=== PATIENT | male | born 1935 | race Caucasian/White ===

== ENCOUNTER 2016-12-20 11:20 | Inpatient (IN) | payer OTHER ==
--- NOTE | ~2016-12-20 | A ---
[facility] Nutrition Therapy DATE: 12/27/16 Patient: DHEERAJ DEL RIO Physician: IONA Address: [address] [facility] Room/Bed: [address] [place] [address], Zip: [place] [address] Admit Date: 12/20/16 Date of : 36 Height: 5 4 Weight: 137 62.4 NUTRITIONAL ASSESSMENT: REASON: ENGINEERING AND DEVELOPMENT DIRECTOR request re: chewing, swallowing difficulty Dx: 81 y/o male admitted for PNA, weakness PMH: ESRD, DM, TIA, HTN, HLD, anemia Anthropometrics: ht: 5'4" wt: 137# (62 kg) BMI: 23 Labs: Na+ 130, Glu 180, accuchecks 159-198, creat 5.8, Ca++ 8.0, Alb 2.1, GFR 8.5 Meds: lovenox, lopressor, protonix, megace, levemir, novolog I/O & Bowel function: 640/2. BM 7/10 Skin Integrity: shunt- LUAl band aid- biopsy site; scabs/skin tears- L elbow BUE Diet: Mechanical soft + CC + thin liquids Assessment: Chart reviewed, events noted. Pt seen per request of ENGINEERING AND DEVELOPMENT DIRECTOR due to pt having chewing and swallowing difficulties. RD technology internship visited pt at bedside. Pt's was in room, feeding patient lunch of beef and mashed potatoes. Pt's reports that the pt's chewing and swallowing function has greatly improved. She reports that the pt had a pancake and soup for breakfast, tolerating 100% of each. RD technology internship encouraged pt and pt's (user experience architect) to continue adequate intake for pt. RD technology internship offered to order supplements to ensure adequate intake, but the pt's says he does not like ensure. RD technology internship offered magic cup, and pt and pt's refused, stating that his intake is adequate. RD will remain available. Dx: Inadequate oral intake r/t chewing/swallowing difficulties AEB PO intake. Intervention: 1. Mechanical soft + CC diet + thin liquids Monitoring, Evaluation and Goals: 1. Oral intake; tolerate/consume >50% of all meals 2. GI function; promote regular GI function 2. Skin; promote healing Recommendations: 1. Per ENGINEERING AND DEVELOPMENT DIRECTOR evaluation, advance diet to consistent carbohydrate. [facility] Nutrition Therapy DATE: 12/27/16 Patient: DHEERAJ DEL RIO Physician: IONA Address: [address] [place] [address] Room/Bed: [address] [place] [address], Zip: [place] [address] Admit Date: 12/20/16 Date of : 36 Height: 5 4 Weight: 137 62.4 2. Encourage adequate PO intake. 3. Monitor for signs of swallowing/chewing difficulty. RD will f/u per protocol as pt is at mild/moderate nutritional risk. Respectfully, JUAN M DE LOS SANTOS, Modeling And Simulation Analyst Aleksandar Calix MS, RD, LD [facility] Services [facility] cc: client file
--- NOTE | ~2016-12-20 | US5 ---
[facility] A Service of [facility] RADIOLOGY TEXT RESULTS PATIENT: DHEERAJ DEL RIO LOCATION: [facility] 566-01 : 36 UNIT #: [id number] AGE: [address]: Elgin Lujan MD SEX: M ORDER DR: [id number] [facility] [address] [place], [place] [address] [id number] I MR#: [id number] #: [id number] NAME: DHEERAJ DEL RIO : 1935 SEX: M STUDY DATE/TIME: 12/24/2016 14:04 UNIT: [facility] ROOM: [facility] STUDY DESCRIPTION: US Abdominal Complete Attending Physician: Elgin Lujan M.D. Ordering Physician: Castro Patterson M.D. Primary Care Physician: Dheeraj Mckeon M.D. MEDICAL IMAGING REPORT This report is preliminary unless electronic signature is present EXAM Ultrasound abdomen complete. HISTORY Liver and spleen, abdominal pain and vomiting x1 week. Anorexia, weight loss, end-stage renal failure with dialysis. History of renal cell carcinoma with partial right nephrectomy. TECHNIQUE Real-time ultrasonography of the abdomen performed. COMPARISON Comparison to CT abdomen and pelvis dated 12/20/2016. FINDINGS The drug enforcement agent indicates study technically difficult due to patient body habitus. Mining Support Worker notes high placement of abdominal organs in the thoracic cavity. The pancreas is obscured by bowel gas artifact. No acute pancreatic abnormalities seen on CT examination 12/20/2016. The proximal aorta measures up to 2.09 cm in diameter. It is patent. Mid aorta measures up to 1.84 cm in diameter. The distal aorta measures up to 1.34 cm in diameter. The inferior vena cava is patent. It measures about 1.51 cm in diameter. The hepatic veins appear grossly patent. The portal vein is patent with normal direction of flow. The liver measures about 13.71 cm in greatest craniocaudal extent. Normal in contour. Slightly heterogeneous echotexture with no focal suspicious abnormality. The gallbladder is not pathologically dilated. There is echogenic nonshadowing material within the gallbladder. It does not have the appearance of gallbladder polyps. I favor echogenic sludge. No shadowing gallstone is clearly seen. I cannot exclude that the echogenic material may reflect very small gallstones. There is no pericholecystic fluid. The gallbladder wall measures approximately 2 mm in thickness. There is no compelling ultrasound evidence of acute cholecystitis. There is no STS. [facility] A Service of [facility] RADIOLOGY TEXT RESULTS PATIENT: DHEERAJ DEL RIO LOCATION: [facility] 566-01 : 36 UNIT #: [id number] AGE: [address]: Elgin Lujan MD SEX: M ORDER DR: biliary ductal dilatation. The common duct measures 3.1 mm in diameter. There is a small right pleural effusion. The right kidney is poorly visualized. It measures approximately 7 cm in greatest length. There is no hydronephrosis or nephrolithiasis. No cystic or solid mass lesion is clearly seen. The left kidney measures about 9.9 cm in length. There is a lower pole cyst measuring 2.38 cm x 2.63 cm x 2.49 cm. There is an upper pole cyst measuring 2.55 cm x 3.13 cm x 2.40 cm. There is no hydronephrosis or nephrolithiasis. There is no perinephric fluid collection. The spleen measures 9.23 cm in length. The splenic artery and vein are patent. There is a small left pleural effusion. IMPRESSION 1. Somewhat technically limited study. The liver is slightly heterogeneous in echotexture with no focal parenchymal abnormality seen. 2. Gallbladder is normal to low in volume. There is nonshadowing echogenic material within the gallbladder most likely representing either very small calculi or gallbladder sludge. No sonographic indication of acute cholecystitis. 3. No biliary ductal dilatation. 4. Kidneys appear somewhat atrophic. Similar appearance on prior CT examination 12/20/2016. There are left renal cysts. No suspicious renal findings. 5. Aorta normal caliber. 6. Hepatic vasculature appears grossly patent. 7. Note made of small bilateral pleural effusions. 8. See complete details in body of report. Dictated by... Priyank Steel M.D. THIS IS AN ELECTRONICALLY VERIFIED REPORT Priyank Steel M.D. at 12/25/2016 10:48 PM VINAY/annie TD: 12/24/2016 23:54 JOB #: [id number] MEDICAL IMAGING REPORT Page 1 of 1 COPY
--- NOTE | ~2016-12-20 | CT71 ---
[facility] A Service of [facility] RADIOLOGY TEXT RESULTS PATIENT: DHEERAJ DEL RIO LOCATION: [facility] : 36 UNIT #: [id number] AGE: [address]: Elgin Lujan MD SEX: M ORDER DR: [id number] [facility] [address] [place], [place] [address] [id number] I MR#: [id number] #: [id number] NAME: DHEERAJ DEL RIO. : 1935 SEX: M STUDY DATE/TIME: 12/20/2016 12:11 UNIT: [facility] ROOM: [facility] STUDY DESCRIPTION: CT Head Wo Contrast Attending Physician: Elgin Lujan M.D. Ordering Physician: Warren Kang M.D. Primary Care Physician: Dheeraj Mckeon M.D. MEDICAL IMAGING REPORT This report is preliminary unless electronic signature is present EXAM Noncontrast head CT. HISTORY Weakness, unable to eat x1 month. Blurred vision x1-1/[address], 01/07/2015. TECHNIQUE Axial noncontrast imaging of the brain demonstrates generalized atrophy. This CT exam was performed with one or more of the following radiation dose reduction techniques: automatic exposure control, adjustment of mA and/or kV according to patient size, and iterative reconstruction. FINDINGS Decreased attenuation within the left caudate and left basal ganglia compatible with lacunar infarct. No large vessel infarct. No mass, mass effect or midline shift. No hemorrhage. Bilateral maxillary and ethmoid sinus disease with air fluid level right maxillary sinus could reflect acute sinusitis. IMPRESSION 1. No acute intracranial abnormality identified. Generalized atrophy. 2. Bilateral ethmoid and maxillary sinus disease with right maxillary sinus air-fluid level which could reflect acute sinusitis. Dictated by.Uli. Laxmi Lopez M.D. THIS IS AN ELECTRONICALLY VERIFIED REPORT [facility] A Service of [facility] RADIOLOGY TEXT RESULTS PATIENT: DHEERAJ DEL RIO LOCATION: [facility] : 36 UNIT #: [id number] AGE: [address]: Elgin Lujan MD SEX: M ORDER DR: Laxmi Lopez M.D. at 12/21/2016 12:31 PM JORGE/annie TD: 12/21/2016 00:22 JOB #: [id number] MEDICAL IMAGING REPORT Page 1 of 1 COPY
--- NOTE | ~2016-12-20 | HP ---
Unit #: [id number] #: [id number] Patient: DHEERAJ DEL RIO [id number] [address] [place], [place] [address] [id number] I MR#: [id number] NAME: DHEERAJ DEL RIO ROOM: 566 Age: 81 Sex: M Admission Date: 12/20/2016 : 1935 Attending Physician: Elgin Lujan M.D. Primary Care Physician: Dheeraj Mckeon M.D. HISTORY AND PHYSICAL HISTORY OF PRESENT ILLNESS 81-year-old white male. History of end stage renal disease on hemodialysis, hypertension, TIA, type 2 diabetes mellitus, anemia, left hip arthroplasty, renal cell CA, status post partial right nephrectomy. Presents to the emergency room with progressive weakness and felt to be depressed by nephrology a few weeks ago and started on Lexapro. He has been very sleepy since then and has had trouble swallowing. He is a very poor historian. It is difficult to tell whether he is having true dysphagia of just anorexia, as he states that even soft foods he has trouble approaching even the smell. They have been trying to give him soups, which he has refused. He has had an unknown amount of weight loss. He is unable to ambulate to the dialysis center and had to be taken in with a wheelchair yesterday and therefore, presented self to the emergency room there. He was appropriately diagnosed with pneumonia. I do not see no evidence of same. He has a normal white count. Chest x-ray showed bilateral pleural effusions and consolidation but not obvious infiltrates. He has had a cough but it has been dry and nonproductive. He has had no fever or chills at home and has no complaints of shortness of air. In any case, he is admitted for further evaluation. It was noted on this last admission he had some transient thrombocytopenia. Yesterday when he was admitted, his platelet count was 56,000. It is pending this morning. He has already been seen by nephrology. Had a CT scan of his chest, abdomen, and pelvis, which are currently pending. He is admitted for further evaluation. ALLERGIES No known drug allergies. MEDICATIONS PRIOR TO ADMISSION Humalog dose unknown before meals. Appears to be a sliding scale. Lantus 20 units subcu q.h.s.; Pravachol 40 mg p.o. daily; Plavix 75 mg p.o. daily; Lexapro 10 mg p.o. daily; niacin 500 mg p.o. daily; vitamin D3 1,000 units daily; multivitamins daily; stool softener 200 mg q.h.s.; metoprolol succinate 25 mg b.i.d.; PAST SURGICAL HISTORY Right partial nephrectomy, left arm AV shunt, left hip hemiarthroplasty. PAST MEDICAL HISTORY End stage renal disease on hemodialysis, partial right nephrectomy for renal cell CA, type 2 diabetes mellitus, hypertension, hyperlipidemia, TIA. SOCIAL HISTORY , nonsmoker, nondrinker, retired, no street drug use. Unit #: [id number] #: [id number] Patient: DHEERAJ DEL RIO FAMILY HISTORY Noncontributory. PHYSICAL EXAMINATION GENERAL: He is awake, alert and oriented x3. is at the bedside. VITAL SIGNS: Afebrile, pulse 82, respirations 18, blood pressure was initially 95/48, currently it is 139/72. Room air O2 sats 100%. HEENT: Unremarkable except for some mild blepharitis. NECK: Supple without JVD, bruits, adenopathy or thyromegaly. CHEST: Decreased breath sounds bibasilar but otherwise clear to auscultation. HEART: Has a regular rate and rhythm without any murmurs, rubs, or gallops. ABDOMEN: Soft, nondistended, nontender. There was some fullness in the right lower quadrant without an obvious palpable mass and there was no hepatosplenomegaly. EXTREMITIES: Showed no clubbing, cyanosis or edema. and RECTAL: Deferred. NEUROLOGIC: Grossly intact. DIAGNOSTIC STUDIES LAB VALUES: CMP is normal except for random blood sugar of 155, creatinine 2.6, GFR of 22, alk phos of 190, albumin 2.6, coags normal. White count 5.6, platelets 56,000, hemoglobin 10.8. Cardiac enzymes normal x2 sets. IMAGING STUDIES: CT scan of the head no active disease. Evidence of chronic and acute sinusitis. Chest x-ray - bilateral pleural effusions with consolidation. CARDIOLOGY STUDIES: EKG shows normal sinus rhythm with a nonspecific T abnormality. IMPRESSION 1. Weakness. 2. Anorexia. 3. Weight loss. 4. Dysphagia. 5. Sinusitis. 6. Thrombocytopenia. 7. Anemia. 8. End stage renal disease on hemodialysis. 9. History of transient ischemic attack. 10. Type 2 diabetes mellitus. 11. History of renal cell cancer. 12. Bilateral pleural effusions. 13. Hyperlipidemia. PLAN 1. Check procalcitonin. 2. GI has been consulted for endoscopy, swallow eval has been ordered. 3. CT scan of the chest, abdomen and pelvis has been performed but not reported. 4. Will add Glucerna. 5. Discontinue his Pravachol and niacin because of the weakness. 6. Change his Lexapro to h.s. because of the sedation. Recheck his Unit #: [id number] #: [id number] Patient: HDEERAJ DEL RIO platelet counts. Further evaluation pending results of the above. Dictated by Yeni Yi/verna TD: 12/21/2016 09:30 JOB #: [id number] HISTORY AND PHYSICAL Page 1 of 1 X Elgin Lujan MD X HISTORY AND PHYSICAL
--- NOTE | ~2016-12-20 | CO ---
Unit #: [id number] #: [id number] Patient: DHEERAJ LAWRENCE [id number] [address] [address] [id number] I MR#: [id number] NAME: DHEERAJ LAWRENCE ROOM: 566 Age: 81 Sex: M Admission Date: 12/20/2016 : 1935 Attending Physician: Elgin Lujan M.D. Primary Care Physician: Dheeraj Mckeon M.D. Requesting Physician: Daljit Bianchi Jr., M.D. Consultation Date: 12/21/2016 CONSULTATION REPORT REASON FOR CONSULTATION Nausea, vomiting, weight loss, and dysphagia. HISTORY OF PRESENT ILLNESS Mr. Lawrence is a very pleasant, 80-year-old, white gentleman who has longstanding type 2 diabetes with end stage renal disease on hemodialysis. For the past several days, patient has been vomiting most of solids; however, he is able to tolerate broths and liquids according to his . According to the , he is a picky and stubborn eater, but has not eaten any solid foods for the past 5 or 6 days. He says he is quite hungry and is looking forward to having breakfast, but he is unable to eat anything because it tends to come back up. Patient is unable to relate any history of preceding retrosternal heartburn or postprandial dyspepsia. PAST MEDICAL HISTORY His past medical history is significant for history of type 2 diabetes with end stage renal disease on hemodialysis. In addition, he has also had a history of hypertension, renal cell carcinoma, status post nephrectomy, and hyperlipidemia. PAST SURGICAL HISTORY Surgeries include a partial right nephrectomy, left-sided AV fistula placed for hemodialysis as well as left femoral fracture. MEDICATIONS His home medications were reviewed and his current medications include the followin. Zithromax. 2. Lexapro. 3. Niacin. 4. Colace. 5. Levemir. 6. NovoLog. 7. Lovenox. 8. Plavix. 9. Vitamin B. 10. IV Protonix. 11. Lopressor. 12. Lexapro. 13. Lipitor. 14. Patient was given a dose of Zosyn on admission. It is not clear why he is on Plavix. ALLERGIES Unit #: [id number] #: [id number] Patient: DHEERAJ LAWRENCE No known drug allergies. REVIEW OF SYSTEMS Detailed review of organ systems does reveal some recent weight loss, history of nausea, vomiting, and history of regurgitation of solids particularly. Patient able to tolerate liquids. There is no history of cough, expectoration, or hemoptysis. No history of dysuria, hematuria, or pyuria. No history of focal seizures or extremity weakness. The rest of the review of organ systems is unremarkable. PHYSICAL EXAMINATION GENERAL APPEARANCE: He is alert, oriented, and appears comfortable. VITAL SIGNS: His vital signs are stable with a temperature of 97.5, pulse 82 per minute and regular, respiratory rate 18, and blood pressure 139/72. He weighs 137 pounds. Baseline weight has been about 146 pounds to about 9-10 pounds higher in the past. HEENT: He has mild pallor. There is no icterus or lymphadenopathy. EXTREMITIES: Grade I pitting, peripheral edema. CARDIOVASCULAR: Normal heart sounds. No murmurs on auscultation. LUNGS: Normal breath sounds with good air entry. ABDOMEN: Soft and nontender. Liver and spleen are not palpable. Bowel sounds normal. DIAGNOSTIC STUDIES LABORATORY: Evaluation is significant for normochromic, normocytic anemia with a hemoglobin of 10.8, white count is 5.6, and platelet count is 56. INR is 1.3. Serum creatinine shows a BUN and creatinine of 5 and 2.6 and blood glucose is 158. Albumin is 2.6. CLINICAL IMPRESSION Patient with nausea, vomiting, and new onset dysphagia. He will need an upper endoscopy and possible dilation; however, in the presence of underlying Plavix and thrombocytopenia, this might be a challenge and we may have to wait until patient is off Plavix for 3-4 days as well as given some platelets. Will do a diagnostic endoscopy and, depending on the latter, proceed further. Thank you for asking me to see this gentleman and I appreciate the consult. Dictated by.Uli. Yeni Kirkpatrick TD: 12/21/2016 10:41 JOB #: [id number] Unit #: [id number] #: [id number] Patient: DHEERAJ LAWRENCE CONSULTATION REPORT Page 1 of 1 X Branden Vogel MD CONSULTATION REPORT
--- NOTE | ~2016-12-20 | DS ---
Unit #: [id number] #: [id number] Patient: DHEERAJ DEL RIO [id number] [address] [address] [id number] I MR#: [id number] NAME: DHEERAJ DEL RIO ROOM: 566 Age: 81 Sex: M Admission Date: 12/20/2016 : 1935 Discharge Date: 12/29/2016 Attending Physician: Elgin Lujan M.D. Primary Care Physician: Dheeraj Mckeon M.D. DISCHARGE SUMMARY PRINCIPAL DISCHARGE DIAGNOSES 1. Weight loss. 2. Weakness. 3. Distal esophageal stricture. 4. Thrombocytopenia. 5. Anemia. 6. Chronic kidney disease, i.e. end-stage renal disease on hemodialysis Monday, , Monday. 7. Hypertension. 8. Type 2 diabetes mellitus. 9. Left ventricular dysfunction with an ejection fraction of 40% to 45%. 10. History of renal cell cancer, status post partial right nephrectomy. 11. Hyperlipidemia. 12. History of transient ischemic attack. 13. Left hip hemiarthroplasty. 14. Left arm arteriovenous shunt. PROCEDURES 1. EGD with biopsy, December 21, 2016. 2. Bone marrow aspiration and biopsy on December 26, 2016. 3. Hemodialysis on December 21, 2016. 4. Hemodialysis on December 23, 2016. 5. Hemodialysis on December 24, 2016. 6. Hemodialysis on December 27, 2016. 7. Hemodialysis on December 29, 2016. CONSULTANTS 1. Dr. Bianchi from nephrology. 2. Dr. Vogel from GI. 3. Dr. Patterson from hematology. 4. Dr. Camacho from cardiology. 5. Dr. Bai from pulmonary services. REASON FOR HOSPITALIZATION The patient is an 81-year-old white male with a history of end-stage renal disease on hemodialysis, hypertension, TIA, type 2 diabetes mellitus, anemia, left hip arthroplasty, renal cell cancer status post right partial nephrectomy presented to the emergency room with progressive weakness, anorexia, weight loss, dysphagia, poor historian. In the emergency room, he was felt to have a pneumonia although I did not see any evidence of same. He had a normal white count. Chest x-ray showed bilateral pleural effusions and consolidation but no obvious infiltrates. The patient had no significant fever, chills, or cough. He was placed on IV antibiotics in the emergency room and admitted. It was noted his platelet count was Unit #: [id number] #: [id number] Patient: DHEERAJ DEL RIO 56,000 on admission without any history of same. He was seen in consultation by Dr. Bianchi to set up his hemodialysis. Dr. Vogel from GI services was consulted because of his weight loss and dysphagia. Oncology was consulted because of the weight loss and history of renal cell CA. He underwent his regular dialysis on the . CT scan of the head showed sinusitis and no active disease. He underwent an EGD with biopsy on the showing distal erosive esophagitis, early stricture formation that was not dilated as the patient was on Plavix. He had some antral gastritis and duodenitis that was biopsied. He was placed on b.i.d. doses of proton pump inhibitors. 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 He was placed on Megace while here to improve his appetite. He underwent dialysis again on the . Hematology was consulted as his platelets dropped to 44,000 on the . His antibiotics were eventually discontinued as there was no evidence of pneumonia. He had a ferritin that was checked at over 1500. Urease from the EGD was negative. TSH was normal at 3.88. Urinalysis showed 3+ protein, 500 of glucose but was otherwise unremarkable. Reticulocyte count was 2%. B12 was 1388. Folic acid was normal at 6.6. He had EKG changes noted on the monitor. EKG was performed to document it and was also abnormal with ST segment depression. Cardiac enzymes were ordered and within normal limits. Cardiology was consulted. Abdominal ultrasound was ordered by the electric motor repairer. It was technically limited. The liver was slightly heterogeneous with no focal abnormalities. There were no other significant findings on this test. PT and PTT were checked and within normal ranges. Haptoglobin was normal at 130. HIT antibody was checked and was negative. Serum protein electrophoresis showed no abnormal bands. Bone marrow aspiration and biopsy were performed on the . Initial findings show hypercellular appearing bone marrow for his age with maturing trilineage, hematopoiesis but apparent erythroid hyperplasia. Case was submitted for further consultation including flow cytometry and cytogenetic testing which are still pending at the time of dictation. His platelet count has come up to 64,000. His CMP this morning is unremarkable except for a sodium of 129, blood sugar 294, creatinine 4.8, GFR 10.6. Alkaline phosphatase 170, albumin 2.4. He was originally to be transferred to rehab, but he has gotten stronger. His appetite is better. He is ambulatory and being discharged home in the care of his for outpatient followup. He is to have home health with [facility] for physical therapy. He is to follow up with Dr. Means next month in their office. He is to follow up with Dr. Stinson on February 13, at 11:15 a.m. He is given a prescription for a hospital bed. CURRENT MEDICATIONS 1. Multivitamins one daily. 2. Plavix 75 mg daily. 3. Protonix 40 mg b.i.d. 4. Vitamin D3 at 1000 units daily. 5. Lexapro 10 mg p.o. nightly. 6. Pravachol 40 mg p.o. daily. 7. Lopressor 50 mg p.o. b.i.d. 8. Colace 200 mg p.o. nightly. 9. Zestril 5 mg p.o. daily. 10. Humalog a.c. and at bedtime based on sliding scale insulin. 11. Lantus SoloStar 20 units subcutaneous nightly. Unit #: [id number] #: [id number] Patient: DHEERAJ DEL RIO Dictated by... Yeni Yi/veena TD: 12/30/2016 16:40 JOB #: [id number] DISCHARGE SUMMARY Page 1 of 1 X Elgin Ljuan MD X DISCHARGE SUMMARY
--- NOTE | ~2016-12-20 | CT55 ---
[facility] A Service of [facility] RADIOLOGY TEXT RESULTS PATIENT: DHEERAJ DEL RIO LOCATION: [facility] 566-01 : 36 UNIT #: [id number] AGE: [address]: Elgin Lujan MD SEX: M ORDER DR: [id number] [facility] [address] [facility]. [place], [place] [address] [id number] I MR#: [id number] Acc #: [id number] NAME: DHEERAJ DEL RIO : 1935 SEX: M STUDY DATE/TIME: 12/20/2016 19:56 UNIT: [facility] ROOM: [facility] STUDY DESCRIPTION: CT Chest W Con Attending Physician: Elgin Lujan M.D. Ordering Physician: Daljit Bianchi Jr., M.D. Primary Care Physician: Dheeraj Mckeon M.D. MEDICAL IMAGING REPORT This report is preliminary unless electronic signature is present EXAM CT chest with IV contrast. HISTORY Shortness of air and weakness today. TECHNIQUE This CT exam was performed with one or more of the following radiation dose reduction techniques: automatic exposure control, adjustment of mA and/or kV according to patient size, and iterative reconstruction. FINDINGS CT chest with IV contrast demonstrates small bilateral pleural effusions. Mild atelectasis in the posterior lower lobes. No adenopathy. Small calcified mediastinal and right hilar nodes are incidentally noted. No infiltrates in the remainder of the lungs. Normal caliber thoracic aorta. IMPRESSION 1. No acute findings and no active disease. 2. Small bilateral pleural effusions and mild atelectasis in the posterior lower lobes. 3. No adenopathy. Dictated by... Leobardo Boateng M.D. THIS IS AN ELECTRONICALLY VERIFIED REPORT Leobardo Boateng M.D. at 12/22/2016 12:07 AM NISHA/daljit TD: 12/21/2016 09:06 [facility] A Service of [facility] RADIOLOGY TEXT RESULTS PATIENT: DHEERAJ DEL RIO LOCATION: [facility] 566-01 : 36 UNIT #: [id number] AGE: [address]: Elgin Lujan MD SEX: M ORDER DR: JOB #: [id number] MEDICAL IMAGING REPORT Page 1 of 1 COPY
--- NOTE | ~2016-12-20 | CO ---
Unit #: [id number] #: [id number] Patient: DHEERAJ DEL RIO [id number] [address] [place], [place] [address] [id number] I MR#: [id number] NAME: DHEERAJ DEL RIO ROOM: 566 Age: 81 Sex: M Admission Date: 12/20/2016 : 1935 Attending Physician: Elgin Lujan M.D. Primary Care Physician: Dheeraj Mckeon M.D. Consultation Date: 12/21/2016 CONSULTATION REPORT CHIEF COMPLAINT Weakness. REASON FOR CONSULTATION Rule out pneumonia. HISTORY OF PRESENT ILLNESS This is an 81-year-old male with a past medical history significant for endstage renal disease on hemodialysis, hypertension and type 2 diabetes. He presented to the emergency room with his due to profound weakness and anorexia. The stated that the patient has been with very poor oral intake for the last few weeks. He was seen by his primary care physician and was placed on some anti-depression medication. The was hoping this would take care of it. However, his conditioned continued to decline over time, again, with very poor oral intake. The stated that the patient would not eat anything solid and when I questioned the patient he denied any odynophagia. However, there is concern for dysphagia. The patient also has lost a lot of weight, but he could not estimate how much. The denied any fever or chills, but she noted that the patient has been coughing a lot lately. PAST MEDICAL HISTORY 1. Endstage renal disease. 2. Type 2 diabetes. 3. Hypertension. 4. Hyperlipidemia. PAST SURGICAL HISTORY 1. Partial right nephrectomy. 2. Left AV shunt. 3. Left hip hemiarthroplasty. SOCIAL HISTORY The patient is and a nonsmoker, nondrinker. He is retired. No street drug abuse. FAMILY HISTORY Noncontributory. Unit #: [id number] #: [id number] Patient: DHEERAJ DEL RIO CURRENT MEDICATIONS Home medications are reviewed and noted by me. REVIEW OF SYSTEMS Twelve point review of systems was obtained and was negative except for that mentioned in the history of present illness. PHYSICAL EXAMINATION GENERAL: The patient is in no acute distress. HEENT: Atraumatic, normocephalic. Extraocular muscles intact. NECK: Supple. No jugular venous distension. No lymphadenopathy. CHEST: Decreased breath sounds bilaterally. HEART: S1 and S2. No murmur or gallop or rub. ABDOMEN: Soft and nontender. Bowel sounds positive. No hepatosplenomegaly. EXTREMITIES: No edema or cyanosis. SKIN: No rashes. NEUROLOGIC: Awake, alert and oriented times three. No focal motor/sensory deficits. DIAGNOSTIC STUDIES IMAGING: Including CT of the chest reviewed and noted by me. LABORATORY: Creatinine 2.6, CO2 28, white blood cell count 5.6, hemoglobin 10.4. ASSESSMENT 1. Cough. 2. Weight loss. 3. Profound weakness. 4. Endstage renal disease on hemodialysis. 5. Hypertension. 6. Hyperlipidemia. 7. Type 2 diabetes. PLAN 1. The patient's CT of the chest was noted and evaluated. There is no clear site of pneumonia. However, given his age and concern of dysphagia, aspiration needs to be ruled out. 2. Speech evaluation at this point. 3. Avoid solid food. 4. Continue azithromycin for bronchitis, but again we need to evaluate for aspiration. 5. GI evaluation. 6. Will follow up blood culture and procalcitonin. I would like to thank Dr. Lujan for allowing me to be part of this patient's care. Dictated by... Jose Bai M.D. EA/adrian TD: 12/21/2016 11:51 JOB #: [id number] Unit #: [id number] #: [id number] Patient: DHEERAJ DEL RIO CONSULTATION REPORT Page 1 of 1 X JOSE BELCHER MD CONSULTATION REPORT
--- NOTE | ~2016-12-20 | EKG ---
PATIENT: DHEERAJ DEL RIO UNIT #: [id number] Ventricular Rate: 74 BPM Atrial Rate: 74 BPM P-R Interval: 140 ms QRS Duration: 88 ms Q-T Interval: 420 ms QTC Calculation(Bezet): 466 ms P [place]: 68 degrees Calculated R [place]: 37 degrees Calculated T [place]: -165 degrees Diagnosis Line: Normal sinus rhythm Diagnosis Line: Nonspecific T wave abnormality Diagnosis Line: Abnormal ECG Diagnosis Line: When compared with ECG of 02-NOV-2015 10:02, Diagnosis Line: Premature supraventricular complexes are no longer Diagnosis Line: Present Diagnosis Line: Nonspecific T wave abnormality now evident in Diagnosis Line: Inferior leads Diagnosis Line: Nonspecific T wave abnormality now evident in Diagnosis Line: Anterolateral leads Diagnosis Line: Confirmed by ALICE LEI MD ([id number]) on Diagnosis Line: 12/21/2016 8:21:52 AM INTERPRETING MD: QUIQUE LAWRENCE
--- NOTE | ~2016-12-20 | CT2 ---
[facility] A Service of [facility] RADIOLOGY TEXT RESULTS PATIENT: DHEERAJ DEL RIO LOCATION: [facility] : 36 UNIT #: [id number] AGE: [address]: Elgin Lujan MD SEX: M ORDER DR: [id number] [facility] [address] [facility]. [place], [place] [address] [id number] I MR#: [id number] Acc #: [id number] NAME: DHEERAJ DEL RIO. : 1935 SEX: M STUDY DATE/TIME: 12/20/2016 19:56 UNIT: [facility] ROOM: [facility] STUDY DESCRIPTION: CT Abd and Pelv W Cont Attending Physician: Elgin Lujan M.D. Ordering Physician: Daljit Bianchi Jr., M.D. Primary Care Physician: Dheeraj Mckeon M.D. MEDICAL IMAGING REPORT This report is preliminary unless electronic signature is present EXAM CT abdomen and pelvis with oral and IV contrast. HISTORY Nausea and weakness today. TECHNIQUE CT abdomen and pelvis was performed with oral and IV contrast. This CT exam was performed with one or more of the following radiation dose reduction techniques: automatic exposure control, adjustment of mA and/or kV according to patient size, and iterative reconstruction. FINDINGS CT ABDOMEN: The liver, gallbladder, spleen, pancreas, and left adrenal gland are unremarkable. 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 Marked atrophy of both kidneys. Postop changes in the upper pole right kidney. Left renal cysts. Normal caliber abdominal aorta. No bowel dilatation. CT PELVIS: Normal appendix. No free fluid. Left hip prosthesis. IMPRESSION 1. No acute findings in the abdomen or pelvis. 2. No bowel obstruction or urinary obstruction. 3. Normal appendix. 4. Postop changes in the right kidney. 5. Atrophy of both kidneys. 6. Incidental right adrenal myelolipoma measures 1.5 cm. Dictated by... [facility] A Service of [facility] RADIOLOGY TEXT RESULTS PATIENT: DHEERAJ DEL RIO LOCATION: [facility] : 36 UNIT #: [id number] AGE: [address]: Elgin Lujan MD SEX: M ORDER DR: Leobardo Boateng M.D. THIS IS AN ELECTRONICALLY VERIFIED REPORT Leobardo Boateng M.D. at 12/22/2016 12:07 AM NIHSA/daljit TD: 12/21/2016 09:08 JOB #: [id number] MEDICAL IMAGING REPORT Page 1 of 1 COPY
--- NOTE | ~2016-12-20 | CR72 ---
[facility] A Service of [facility] RADIOLOGY TEXT RESULTS PATIENT: DHEERAJ DEL RIO LOCATION: [facility] 566-01 : 36 UNIT #: [id number] AGE: [address]: Elgin Lujan MD SEX: M ORDER DR: [id number] [facility] [address] [facility] [place], [place] [address] [id number] I MR#: [id number] #: [id number] NAME: DHEERAJ DEL RIO : 1935 SEX: M STUDY DATE/TIME: 12/20/2016 12:27 UNIT: [facility] ROOM: [facility] STUDY DESCRIPTION: CR Chest Single View Portable Attending Physician: Elgin Lujan M.D. Ordering Physician: Warren Kang M.D. Primary Care Physician: Dheeraj Mckeon M.D. MEDICAL IMAGING REPORT This report is preliminary unless electronic signature is present EXAM Portable chest radiograph INDICATION Weakness and shortness of breath starting today. FINDINGS Heart size is within normal limits. This patient has bilateral pleural effusions as well as some bibasilar consolidation. No pneumothorax is identified. No aggressive osseous abnormalities are seen. Dictated by... Shirlene Beckwith M.D. THIS IS AN ELECTRONICALLY VERIFIED REPORT Shirlene Beckwith M.D. at 12/22/2016 8:06 AM THOMPSON/sundeep TD: 12/21/2016 00:27 JOB #: [id number] MEDICAL IMAGING REPORT Page 1 of 1 COPY
--- NOTE | ~2016-12-20 | EKG ---
PATIENT: DHEERAJ DEL RIO UNIT #: [id number] Ventricular Rate: 97 BPM Atrial Rate: 97 BPM P-R Interval: 144 ms QRS Duration: 92 ms Q-T Interval: 364 ms QTC Calculation(Bezet): 462 ms P [place]: 60 degrees Calculated R [place]: 30 degrees Calculated T [place]: -149 degrees Diagnosis Line: Sinus rhythm with Premature atrial complexes Diagnosis Line: ST and T wave abnormality, consider inferior Diagnosis Line: ischemia Diagnosis Line: ST and T wave abnormality, consider anterolateral Diagnosis Line: ischemia Diagnosis Line: Left ventricular hypertrophy Diagnosis Line: Prolonged QT Diagnosis Line: Abnormal ECG Diagnosis Line: No previous ECGs available Diagnosis Line: Confirmed by SARA LAWRENCE, ANDERSON ([id number]) on Diagnosis Line: 12/26/2016 5:10:48 PM INTERPRETING MD: KASHIF
--- NOTE | ~2016-12-20 | CO ---
Unit #: [id number] #: [id number] Patient: DHEERAJ LAWRENCE [id number] [address] [place], [place] [address] [id number] I MR#: [id number] NAME: DHEERAJ LAWRENCE. ROOM: 566 Age: 81 Sex: M Admission Date: 12/20/2016 : 1935 Attending Physician: Elgin Lujan M.D. Primary Care Physician: Dheeraj Mckeon M.D. CONSULTATION REPORT HISTORY OF PRESENT ILLNESS Mr. Lawrence is a very pleasant gentleman with diagnosis of end-stage renal disease. He has a history of renal cell in the past. He has anemia and of interest, the platelets have been dropping for a couple years now. In 09/12/2013, he had a hemoglobin of 14 and platelet counts were 231,000. On 01/07/2015, he had hemoglobin of 13 and platelet count 134. Hemoglobin on 11/06/2015 of 8.9 and platelet count 134. On 11/09/2016, platelet count of 56,000 and hemoglobin 10.8. His platelet count today is down to the 40s. This certainly is concerning for possibly liver disease in him and could be possible for bone marrow failure, chronic versus an infiltration of the marrow. I am going to go ahead and get an ultrasound and do some basic labs, and if the labs are not clear that this is a liver disease that is progressing over the last few years, then it would be worth considering a bone marrow on him to make sure that there was not an another issue going on. PAST MEDICAL HISTORY 1. Significant for renal cell carcinoma. 2. Significant for hypertension. 3. Significant for dyslipidemia. 4. Significant for diabetes. 5. Significant for end-stage renal disease. SOCIAL HISTORY No alcohol, no drug use reported. No tobacco reported. His family in the room. FAMILY HISTORY Negative for blood disorders. REVIEW OF SYSTEMS Positive for feeling weak and run down over the last few weeks. PHYSICAL EXAMINATION GENERAL: Shows a well-developed, well-nourished gentleman in no acute distress. HEENT: Eyes show no scleral icterus. Pupils are equal. Mouth is moist. Hearing intact. NECK: Shows normal JVP. Trachea midline. LUNGS: Clear. ABDOMEN: Benign. LYMPH: No adenopathy. SKIN: No rashes. NEUROLOGIC: He is awake, alert, and oriented to person, place, and time. Unit #: [id number] #: [id number] Patient: DHEERAJ LAWRENCE Normal judgment, affect and insight. ASSESSMENT Very pleasant gentleman with a diagnosis of dropping counts overtime as laid out in the HPI going back 3 years. I think this is going to be a chronic problem. It is less likely to be a marrow infiltration by tumor. Because of that, should have a more rapid crescendo of dropping counts over just a couple of months. This looks more like evolution of a low-grade dysplasia or evolution of liver disease with insufficiency. I am going to go ahead get an ultrasound take a look at the liver and spleen. If that looks completely normal, then I think that it would be worthwhile to do a bone marrow on him. I am going to go ahead and also get an ultrasound liver and spleen, B12, folate, serum protein, electrophoresis, reticulocyte count and haptoglobin and we will see with these numbers look like and will go from there. Dictated by... Castro Patterson M.D. PAUL/gricelda TD: 12/25/2016 13:50 JOB #: [id number] CONSULTATION REPORT Page 1 of 1 X X CONSULTATION REPORT
--- NOTE | ~2016-12-20 | OR ---
Unit #: [id number] #: [id number] Patient: DHEERAJ DEL RIO [id number] [address] [place], [place] [address] [id number] I MR#: [id number] NAME: DHEERAJ DEL RIO ROOM: 566 Date of Procedure: 12/21/2016 Admission Date: 12/20/2016 Surgeon: Branden Vogel M.D. : 1935 Attending Physician: Elgin Lujan M.D. Primary Care Physician: Dheeraj Mckeon M.D. OPERATIVE REPORT PRIMARY CARE PHYSICIAN Dheeraj Mckeon M.D. PREOPERATIVE DIAGNOSES Anorexia, nausea, vomiting, regurgitation, and weight loss. PROCEDURES PERFORMED Upper gastrointestinal endoscopy and biopsy. POSTOPERATIVE DIAGNOSES 1. The patient had distal grade 2 erosive esophagitis. 2. There was early stricture, which was nonobstructing in the distal esophagus. This was not dilated due to the fact the patient is on Plavix. 3. Mild prepyloric antral erosive gastritis. 4. Mild focal patchy erosive duodenitis. 5. Rest of the examination up to third part of duodenum was normal. A biopsy was obtained from the antrum for CLOtest. RECOMMENDATIONS 1. Increase the dose of pantoprazole 40 mg IV b.i.d. and can be changed to oral b.i.d. tomorrow. 2. The patient will need elective dilation in the future after being off Plavix for 4 to 5 days. SEDATION USED MAC. DESCRIPTION OF PROCEDURE Following detailed explanation of potential risks and complications of an upper endoscopy, namely perforation, bleeding, and complications related to sedation, the patient was brought to GI lab and laid in the left lateral decubitus position. Lubricated tip of the Olympus video upper endoscope was passed through the bite block into the proximal esophagus under direct vision. The entire esophageal mucosa was examined. The patient was noted to have distal grade 2 erosive esophagitis along with early stricture which was felt to be nonobstructing. It was not dilated due to the fact the patient is on Plavix. Upon withdrawal and retroflexion; incisura, cardia, and greater curve was examined and no additional findings were noted. A biopsy was obtained from the antrum for CLOtest. The scope was then withdrawn in the distal esophagus. The entire esophageal mucosa was examined all the way up to pharynx. No additional findings were noted. The patient tolerated the procedure Unit #: [id number] #: [id number] Patient: DHEERAJ DEL RIO without any postprocedure complications. Dictated by..Yeni Patterson/gricelda TD: 12/21/2016 14:49 JOB #: [id number] CC: . Daljit Bianchi Jr., M.D. OPERATIVE REPORT Page 1 of 1 X Branden Vogel MD X PROCEDURE OPERATIVE NOTE
--- NOTE | ~2016-12-20 | XA51 ---
[facility] A Service of [facility] & [facility] RADIOLOGY TEXT RESULTS PATIENT: DHEERAJ DEL RIO [facility] [address] : 36 UNIT #: [id number] AGE: [address]: Elgin Lujan MD SEX: M ORDER DR: [id number] [id number] [facility]. [place], [place] [address] [id number] I MR#: [id number] Acc #: [id number] NAME: DHEERAJ DEL RIO. : 1935 SEX: M STUDY DATE/TIME: 12/26/2016 10:53 [facility]IT[facility] ROOM: [facility] STUDY DESCRIPTION: XA BX Bone Marrow Attending Physician: Elgin Lujan M.D. Ordering Physician: Castro Patterson M.D. Primary Care Physician: Dheeraj Mckeon M.D. MEDICAL IMAGING REPORT This report is preliminary unless electronic signature is present PROCEDURE Fluoroscopically guided bone marrow biopsy and aspiration. INDICATION Thrombocytopenia in an 81-year-old male. The fluoroscopy time is 0.3 minutes. Reference air kerma is 21 mGy. One fluoroscopic spot image was taken. The medications administered were 1 mg Versed IV and 5 mcg of Fentanyl IV. A total of 25 minutes of conscious sedation time was monitored by appropriately credentialed radiology nursing staff and directly supervised by Dr. Lopez. The risks, benefits and alternatives of the procedure were discussed with the patient and informed consent was obtained. In the procedure room a time-out was performed confirming correct patient and procedure. All elements of maximum sterile-barrier technique utilized according to guidelines appropriate for the procedure. TECHNIQUE/FINDINGS Skin overlying the posterior right iliac crest was prepped and draped in the usual sterile fashion. 1% lidocaine was utilized to anesthetize the skin and underlying subcutaneous tissues. Next, under fluoroscopic guidance, a 11-gauge OnControl needle was advanced into the marrow space and a bone marrow aspirate followed by core biopsy was obtained and samples were sent to pathology. Needle was removed and a sterile dressing was applied. No immediate complications. IMPRESSION Technically successful fluoroscopically guided bone marrow biopsy and aspiration. [facility] A Service of [facility] & [facility] RADIOLOGY TEXT RESULTS PATIENT: DHEERAJ DEL RIO [facility] 566-01 : 36 UNIT #: [id number] AGE: [address]: Elgin Lujan MD SEX: M ORDER DR: Dictated by... Caesar Lopez M.D. THIS IS AN ELECTRONICALLY VERIFIED REPORT Caesar Lopez M.D. at 12/28/2016 7:44 AM Rahel TD: 12/27/2016 08:34 JOB #: [id number] MEDICAL IMAGING REPORT Page 1 of 1 COPY
--- NOTE | ~2016-12-20 | CO ---
Unit #: [id number] #: [id number] Patient: DHEERAJ LAWRENCE [id number] [facility]. [place], [place] [address] [id number] I MR#: [id number] NAME: DHEERAJ LAWRENCE ROOM: 566 Age: 81 Sex: M Admission Date: 12/20/2016 : 1935 Attending Physician: Elgin Lujan M.D. Primary Care Physician: Dheeraj Mckeon M.D. Consultation Date: 12/20/2016 CONSULTATION REPORT REASON FOR CONSULTATION Dialysis needs. HISTORY OF PRESENT ILLNESS Mr. Lawrence is a very pleasant 81-year-old male, who I see at a dialysis unit 3 days a week for his dialysis needs. I was called by his , who was concerned about his condition at home. Over the last several weeks to even few months, the patient's overall clinical situation has deteriorated. He is progressively got more and more weak with poor appetite and weight loss. He is sleeping most of the day. I initially thought he may have some depression and started some Lexapro almost 2 weeks ago with no improvement of the symptoms. When I saw him at the dialysis unit today, he looked worse with swelling, shortness of breath, and cough. He was sent over to the emergency room and is being admitted for the above issues and a diagnosis of pneumonia. Of note, the patient does have a history of renal cell cancer in the past. He was last here in the hospital about a year ago for a right hip fracture. PAST MEDICAL HISTORY Significant for end-stage renal disease, hypertension, diabetes, renal cell cancer, hyperlipidemia. PAST SURGICAL HISTORY He had a partial right nephrectomy, left AV shunt, and hip repair. HOME MEDICATIONS Humalog insulin, Lantus insulin, Pravachol 40 mg a day, Plavix 75 mg a day, Lexapro 10 mg a day, niacin 500 mg a day, vitamin D daily, multivitamin daily, stool softener at bedtime, metoprolol succinate 25 mg b.i.d. ALLERGIES He has no known drug allergies. FAMILY HISTORY Noncontributory. SOCIAL HISTORY He is a former smoker. He is retired. No drug abuse or alcohol. He is and his is a former employee here at [employer]. REVIEW OF SYSTEMS A complete 12-point review of systems was completed with the above findings. He has had a cough and was telling me earlier that he is having Unit #: [id number] #: [id number] Patient: DHEERAJ LAWRENCE trouble swallowing with gagging. No fevers or chills. No sore throat or earache. No chest pain or palpitations. No hemoptysis. No bright red blood per rectum or melena. No hematuria. Swelling in the face and legs. No rashes or itching. No flank pain. No night sweats or hot flashes. No intolerance to heat or cold. He has lost weight. Unless otherwise indicated, the review of systems was negative. PHYSICAL EXAMINATION VITAL SIGNS: The patient is afebrile. Pulse 83, respiratory rate 18, and blood pressure 141/62. GENERAL: This is a lethargic and tired appearing 81-year-old male, resting in no acute distress. HEENT: Head is atraumatic and normocephalic. Eyes show pale conjunctivae with no scleral icterus. No nasal drainage or nosebleed. Oropharynx is slightly dry. No thrush. NECK: Shows no rigidity, no JVD. HEART: Regular rate and rhythm with no murmurs or rubs appreciated. LUNGS: Without wheezing or rhonchi. There are some diminished breath sounds at the bases. Breathing is nonlabored. ABDOMEN: Soft and nontender. Bowel sounds are present. EXTREMITIES: No lower extremity clubbing or cyanosis. He does have ankle edema bilaterally. SKIN: Dry without rashes. MUSCULOSKELETAL: No joint effusions noted. VASCULAR: The patient has a left arm fistula in place with good bruit and thrill. NEUROLOGIC: Nonfocal, but he does have generalized weakness and fatigue. DIAGNOSTIC STUDIES LABORATORY RESULTS: CK level 30. Troponin 0.03. CBC showed a white count of 5, hemoglobin 10.8, platelet count just 56 with a left shift. Chemistry noteworthy for a potassium of 3.8, bicarb 28, BUN creatinine and 5 and 2.6. After dialysis, albumin is just 2.6. ASSESSMENT AND PLAN 1. End-stage renal disease. The patient has already had dialysis today, but I will schedule an extra treatment for tomorrow for volume removal. 2. Hypertension. His home metoprolol has been resumed and we can treat blood pressure further by lowering his dry weight which is needed. 3. Anemia of chronic disease. Hemoglobin is a go and he is on protocol from Amanda at the dialysis unit. 4. Pneumonia. I suspect this is aspiration pneumonia. We will change his ordered Rocephin over the Zosyn. 5. History of renal cell cancer. This coupled with his weight loss and poor appetite. Suggests the need for further workup and I will be ordering a CT scan of the chest, abdomen, and pelvis tonight. 6. Weight loss with poor appetite and gagging when he eats. I will ask for Speech to see the patient as well as GI. I would like to thank Dr. Sanchez for this consult and the opportunity to participate in evaluation care of Mr. Lawrence. Dictated by... Daljit Bianchi Jr., MSusan. ANGELO/gricelda TD: 12/20/2016 18:25 Unit #: [id number] #: [id number] Patient: DHEERAJ LAWRENCE JOB #: [id number] CONSULTATION REPORT Page 1 of 1 X Daljit Bianchi MD X CONSULTATION REPORT
--- NOTE | ~2016-12-20 | CO ---
Unit #: [id number] #: [id number] Patient: DHEERAJ LAWRENCE [id number] [facility]. [place], [place] [address] [id number] I MR#: [id number] NAME: DHEERAJ LAWRENCE ROOM: 566 Age: 81 Sex: M Admission Date: 12/20/2016 : 1935 Attending Physician: Elgin Lujan M.D. Primary Care Physician: Dheeraj Mckeon M.D. Consultation Date: 12/25/2016 CONSULTATION REPORT REASON FOR CONSULTATION We were asked to see for EKG changes. HISTORY OF PRESENT ILLNESS Mr. Lawrence is an 81-year-old white male, who was admitted with complaints of nausea, vomiting, anorexia, weight loss, and regurgitation. He presented to the emergency room with progressive weakness, two weeks ago he had been started on Lexapro secondary to Nephrology thinking he was depressed. He has been very sleepy, had trouble swallowing, he is a poor historian. He was taken and had an EGD done on 12/21/2016, which showed distal grade 2 erosive esophagitis, early stricture with non-obstruction in the distal esophagus, it was not dilated due to the fact that the patient was on Plavix. There was mild pre-pyloric antral erosive gastritis, mild focal patchy erosive duodenitis, and biopsies were obtained. The patient is very somnolent. is at bedside. states that he has been profoundly weak and he could never get comfortable for breathing well. There was no sarah dyspnea, but he stating just could not get comfortable enough to breathe well. He used to take digoxin, uncertain why to regulate "heart," it was taken off in 1994 with dialysis. PAST MEDICAL HISTORY 1. End-stage renal disease, on hemodialysis. 2. TIA. 3. Diabetes. 4. Renal cell carcinoma. PAST SURGICAL HISTORY 1. Left hip arthroplasty, partial right nephrectomy, left arm AV shunt. 2. Hypertension. 3. Dyslipidemia. HOME MEDICATIONS Humalog, Lantus 20 units at bedtime, Pravachol 40 mg daily, Plavix 75 mg daily, Lexapro 10 mg daily, niacin 500 mg daily, vitamin D3 1000 units daily, multivitamin tablet, stool softener 200 mg at bedtime, metoprolol succinate 25 mg b.i.d. ALLERGIES No known drug allergies. SOCIAL HISTORY He is , nonsmoker, nondrinker, retired. No illicit drug use. Unit #: [id number] #: [id number] Patient: DHEERAJ LAWRENCE REVIEW OF SYSTEMS Denies sarah melena. No hematuria. No chest pain. No chest pressure. No orthopnea. No dyspnea on exertion, but positive for profound fatigue, tiredness, anorexia, reflex, nausea, weight loss, not feeling well. Denies any past cardiac workup. No coronary catheterization. No PCI. No stent. No stress test. PHYSICAL EXAMINATION GENERAL: Elderly white male, who is somnolent and difficult to arouse, but when he was awakened he did remain awake. VITAL SIGNS: Temperature 97.8, pulse 92, respirations 16, blood pressure 137/68, 5 feet 4 inches, weight 61 kg. BMI 20. is at bedside. HEENT: Normocephalic and atraumatic. No xanthelasma. Extraocular movement intact. Pupils equal, round, reactive to light. No jugular venous distention. No elevated CVP. Positive left carotid bruit. HEENT: S1 and S2. No S3, S4. Soft 2/6 holosystolic murmur. No lift. No rubs. No gallops. ABDOMEN: Soft, nontender, nondistended. EXTREMITIES: No clubbing, cyanosis, or edema. 2+ pulses bilaterally. NEUROLOGIC: The patient is sleepy, groggy, but did awaken and no obvious facial drooping. Speech was clear and appropriate. DIAGNOSTIC STUDIES IMAGING STUDIES: On admission, the patient had multiple radiologic studies. CT of the head showed no acute intracranial abnormality, generalized atrophy. Chest x-ray showed the heart size within normal limits, bilateral pleural effusions with some bibasilar consolidation. CT of the chest showed no acute findings and no active disease, small bilateral pleural effusions and mild atelectasis in the posterior lower lobes, no adenopathy. CT of abdomen and pelvis showed no acute findings in the abdomen or pelvis, no bowel obstruction or urinary obstruction. There was a normal appendix. There were postop changes in the right kidney, atrophy of both kidneys. Ultrasound of the abdomen done on 12/24/2016, again there were some small bilateral pleural effusions. LABORATORY RESULTS: Chemistry done on 12/23/2016 showed a sodium of 132, potassium 2.8, chloride 104, CO2 of 25, BUN 10, creatinine 3.2, glucose 137. On admission, he had serial troponins less than 0.03 and 0.03. PT 14.5, INR 1.3, PTT 26.6. Hemoglobin 9.8, hematocrit 29.1, white blood cell count 4.6, platelet count 45. CARDIOVASCULAR STUDIES: 12-lead EKG shows normal sinus rhythm, ventricular rate 97 with PACs. T-wave inversion in V4, V5, V6 as well as lead I and aVL. T-wave inversion in II and aVF. These are new in comparison to his 12-lead EKG of 12/20/2016, which was normal sinus rhythm, ventricular rate 74 and just nonspecific T-wave abnormality. ASSESSMENT AND PLAN 1. EKG changes in setting of no chest discomfort or chest pain. 2. End-stage renal disease with hemodialysis. 3. History of transient ischemic attack. 4. Diabetes. 5. History renal cell carcinoma. 6. History of hypertension, history of dyslipidemia. A new set of cardiac enzymes are pending. We will add BMP and BNP to the blood in the lab. 7. Left carotid bruit. His EKG changes could be due to history of Unit #: [id number] #: [id number] Patient: DHEERAJ LAWRENCE hypertension. EKG does show some left ventricular hypertrophy by EKG criteria. He also had a low potassium back on 12/23/2016. We will order a BNP (brain natriuretic peptide), BMP, and magnesium now. We will obtain a 2D echo. We will also get bilateral carotid Dopplers for left carotid bruit. The patient was seen in consultation with Dr. Camacho. 8. Erosive esophagitis; end-stage renal disease, hemodialysis; diabetes mellitus; anemia. Thank you for allowing us to participate in the care of your patient. Any further recommendations per Dr. Camacho. Serial troponins were ordered by primary team. Dictated by... Ayala Blanco A.P.R.N. for S. Jae Camacho M.D. HUEY/gricelda TD: 12/26/2016 06:18 JOB #: [id number] CONSULTATION REPORT Page 1 of 1 X X CONSULTATION REPORT
--- NOTE | ~2016-12-20 | EKG ---
PATIENT: DHEERAJ DEL RIO UNIT #: [id number] Ventricular Rate: 88 BPM Atrial Rate: 88 BPM P-R Interval: 170 ms QRS Duration: 96 ms Q-T Interval: 386 ms QTC Calculation(Bezet): 467 ms P [place]: 51 degrees Calculated R [place]: 24 degrees Calculated T [place]: -11 degrees Diagnosis Line: Normal sinus rhythm Diagnosis Line: Nonspecific T wave abnormality Diagnosis Line: Prolonged QT Diagnosis Line: Abnormal ECG Diagnosis Line: When compared with ECG of 25-DEC-2016 11:41, Diagnosis Line: (unconfirmed) Diagnosis Line: Premature atrial complexes are no longer Present Diagnosis Line: T wave inversion no longer evident in Anterior Diagnosis Line: leads Diagnosis Line: Confirmed by ANDERSON RUIZ MD ([id number]) on Diagnosis Line: 12/26/2016 5:17:49 PM INTERPRETING MD: KASHIF
[~2016-12-20 11:20] MED LIST: AMLODIPINE BESY10 MG PO; ASPIRIN81 M2 PO; CLOPIDOGREL75 MG PO; HUMALOG100 U/M2; HYDRALAZINE HCL25 MG PO; LANTUS100 U/ML; LOTREL 10/20 CA1 CAP PO; NEURONTIN100 MG PO; NIACIN ER1000 MG PO; PRAVASTATIN SOD40 MG PO; RENVELA800 MG PO; STOOL SOFTENER50 MG PO; TOPROL XL100 MG PO; VITAMIN D31000 UNIT PO
[2016-12-20] MEDS ORDERED: HUMALOG100 UNIT/1 (12:54)
[2016-12-20] MEDS ORDERED: CLOPIDOGREL75 MG PO (12:54)
[2016-12-20] MEDS ORDERED: LANTUS SOL100 UNIT/1 SUBQ (12:54)
[2016-12-20] MEDS ORDERED: PATIENT'S PHARMACY (12:54)
[2016-12-20] MEDS ORDERED: PRAVACHOL PO (12:54)
[2016-12-20] MEDS ORDERED: STOOL SOFTENER100 M1 PO (12:55)
[2016-12-20] MEDS ORDERED: MULTIVITAMINS1 EAC4 PO (12:55)
[2016-12-20] MEDS ORDERED: ESCITALOPRAM OX10 MG PO (12:55)
[2016-12-20] MEDS ORDERED: NIACIN PO (12:55)
[2016-12-20] MEDS ORDERED: VITAMIN D31000 UNI2 PO (12:55)
[2016-12-20] MEDS ORDERED: METOPROLOL SUCC25 MG PO (13:04)
[2016-12-20 13:30] LABS: ALBUMIN SERUM 2.6 g/dL (3.5-5.0); BILIRUBIN, DIRECT 0.3 mg/dL (0.0-0.2); BILIRUBIN,INDIRECT 0.5 mg/dL (0.0-0.9); BILIRUBIN,TOTAL 0.8 mg/dL (0.2-2.0); BUN/CREATININE RATIO 1.92; CALCIUM SERUM 8.4 mg/dL (8.4-10.2); CREATININE SERUM 2.6 mg/dL (0.6-1.4); GLOM FILT RATE Estimated 22.3 mL/min (>60); POTASSIUM 3.8 mmol/L (3.5-5.1); PROTEIN TOTAL SERUM 5.3 g/dL (6.0-8.3)
[2016-12-20 14:12] LABS: BASOPHIL% 0.2 % (0-2.5); EOSINOPHIL% 0.1 % (0.0-7.0); HEMATOCRIT 32.4 % (38.0-50.0); HEMOGLOBIN 10.8 gm/dL (13.0-16.0); LYMPHOCYTE# 0.6 X10e3 (1.0-3.5); LYMPHOCYTE% 11.1 % (17.0-45.0); MEAN CELL VOLUME 99.8 FL (83-96); MEAN CORPUSCULAR HEMOGLOBIN 33.3 PG (28-34); MEAN CORPUSCULAR HGB CONC 33.3 g/dL (30-36); MEAN PLATELET VOLUME 8.1 FL (6.5-11.5); MONOCYTE# 0.3 X10e3 (0-1.0); MONOCYTE% 4.8 % (3.0-12.0); NEUTROPHIL# 4.7 X10e3 (1.5-7.1); NEUTROPHIL% 83.8 % (40-75); RED BLOOD COUNT 3.25 X10e (3.90-5.60); RED CELL DISTRIBUTION WIDTH 14.1 % (11.0-15.5); WHITE BLOOD COUNT 5.6 X10e3 (4.0-10.5)
[2016-12-20 14:18] LABS: INR 1.3; PARTIAL THROMBOPLASTIN TIME 26.6 SECONDS (23.5-31.3); PROTHROMBIN TIME (PATIENT) 14.5 SECONDS (10.0-11.7)
[2016-12-20 14:19] LABS: DIFF IND NO
[2016-12-20 14:56] LABS: PLATELET COUNT 56 X10e3 (140-420)
[2016-12-20 16:17] LABS: CK TOTAL 30 IU/L (36-174)
[2016-12-20 17:49] LABS: CK TOTAL 32 IU/L (36-174)
[2016-12-23 10:36] LABS: HEMATOCRIT 26.8 % (38.0-50.0); HEMOGLOBIN 9.1 gm/dL (13.0-16.0); MEAN CELL VOLUME 97.8 FL (83-96); MEAN CORPUSCULAR HEMOGLOBIN 33.1 PG (28-34); MEAN CORPUSCULAR HGB CONC 33.9 g/dL (30-36); MEAN PLATELET VOLUME 7.6 FL (6.5-11.5); RED BLOOD COUNT 2.74 X10e (3.90-5.60); RED CELL DISTRIBUTION WIDTH 13.9 % (11.0-15.5); WHITE BLOOD COUNT 4.2 X10e3 (4.0-10.5)
[2016-12-23 11:44] LABS: BUN/CREATININE RATIO 3.12; CALCIUM SERUM 7.6 mg/dL (8.4-10.2); CREATININE SERUM 3.2 mg/dL (0.6-1.4); GLOM FILT RATE Estimated 17.3 mL/min (>60)
[2016-12-23 11:50] LABS: POTASSIUM 2.8 mmol/L (3.5-5.1)
[2016-12-23 11:56] LABS: PROCALCITONIN 0.45 NG/ML
[2016-12-24 06:09] LABS: URINE SOURCE CLEAN CATCH
[2016-12-24 06:35] LABS: URINE APPEARANCE CLEAR; URINE BILIRUBIN NEG (NEG); URINE BLOOD 1+ (NEG); URINE COLOR YELLOW; URINE GLUCOSE 500 MG/DL (NEG); URINE KETONE 1+ (NEG); URINE LEUKOCYTE ESTERASE NEG (NEG); URINE NITRATE NEG (NEG); URINE PH 8.5 (5-8); URINE PROTEIN 3+ (NEG); URINE SPECIFIC GRAVITY 1.023 (1.003-1.035); URINE UROBILINOGEN 0.2 MG/DL (NEG)
[2016-12-24 06:37] LABS: URBCS1 AUWI 0-2 /[HPF] (0-2); URINE BACTERIA AUWI NEG (NEGATIVE); URINE SQUAMOUS EPITHELIAL CELL OCC /[HPF]
[2016-12-24 06:39] LABS: CULTURE INDICATED? NO
[2016-12-24 09:06] LABS: HEMATOCRIT 29.1 % (38.0-50.0); HEMOGLOBIN 9.8 gm/dL (13.0-16.0); MEAN CELL VOLUME 97.9 FL (83-96); MEAN CORPUSCULAR HEMOGLOBIN 33.1 PG (28-34); MEAN CORPUSCULAR HGB CONC 33.8 g/dL (30-36); MEAN PLATELET VOLUME 7.8 FL (6.5-11.5); RED BLOOD COUNT 2.97 X10e (3.90-5.60); RED CELL DISTRIBUTION WIDTH 14.2 % (11.0-15.5); WHITE BLOOD COUNT 4.6 X10e3 (4.0-10.5)
[2016-12-24 17:30] LABS: FOLATE (FOLIC ACID) 6.6 ng/mL (>5.8)
[2016-12-25 14:59] LABS: CK TOTAL 18 IU/L (36-174)
[2016-12-25 15:47] LABS: BUN/CREATININE RATIO 2.72; CREATININE SERUM 4.4 mg/dL (0.6-1.4); GLOM FILT RATE Estimated 11.8 mL/min (>60); MAGNESIUM 1.9 mg/dL (1.6-3.0); POTASSIUM 3.3 mmol/L (3.5-5.1)
[2016-12-25 19:30] LABS: CK TOTAL 15 IU/L (36-174)
[2016-12-25 23:56] LABS: CK TOTAL 18 IU/L (36-174)
[2016-12-26 09:58] LABS: PARTIAL THROMBOPLASTIN TIME 25.3 SECONDS (23.5-31.3); PROTHROMBIN TIME (PATIENT) 10.8 SECONDS (10.0-11.7)
[2016-12-26 10:16] LABS: BASOPHIL% 0.2 % (0-2.5); EOSINOPHIL# 0.2 X10e3 (0-0.7); HEMATOCRIT 31.9 % (38.0-50.0); HEMOGLOBIN 10.9 gm/dL (13.0-16.0); LYMPHOCYTE# 1.6 X10e3 (1.0-3.5); LYMPHOCYTE% 30.6 % (17.0-45.0); MEAN CELL VOLUME 99.1 FL (83-96); MEAN CORPUSCULAR HEMOGLOBIN 33.8 PG (28-34); MEAN CORPUSCULAR HGB CONC 34.1 g/dL (30-36); MEAN PLATELET VOLUME 7.4 FL (6.5-11.5); MONOCYTE# 0.4 X10e3 (0-1.0); MONOCYTE% 7.9 % (3.0-12.0); NEUTROPHIL# 3.1 X10e3 (1.5-7.1); NEUTROPHIL% 58.3 % (40-75); PLATELET COUNT 58 X10e3 (140-420); RED BLOOD COUNT 3.22 X10e (3.90-5.60); RED CELL DISTRIBUTION WIDTH 14.4 % (11.0-15.5); WHITE BLOOD COUNT 5.3 X10e3 (4.0-10.5)
[2016-12-26 10:31] LABS: ALBUMIN SERUM 2.5 g/dL (3.5-5.0); BILIRUBIN,TOTAL 0.7 mg/dL (0.2-2.0); BUN/CREATININE RATIO 3.13; CALCIUM SERUM 8.4 mg/dL (8.4-10.2); CREATININE SERUM 5.1 mg/dL (0.6-1.4); GLOM FILT RATE Estimated 9.9 mL/min (>60); POTASSIUM 3.5 mmol/L (3.5-5.1); PROTEIN TOTAL SERUM 5.3 g/dL (6.0-8.3)
[2016-12-26 10:37] LABS: DIFF IND NO
[2016-12-27 05:39] LABS: HEMATOCRIT 27.5 % (38.0-50.0); HEMOGLOBIN 9.4 gm/dL (13.0-16.0); MEAN CELL VOLUME 99.1 FL (83-96); MEAN CORPUSCULAR HEMOGLOBIN 33.7 PG (28-34); MEAN PLATELET VOLUME 7.4 FL (6.5-11.5); RED BLOOD COUNT 2.78 X10e (3.90-5.60); RED CELL DISTRIBUTION WIDTH 14.7 % (11.0-15.5)
[2016-12-27 06:30] LABS: ALBUMIN SERUM 2.1 g/dL (3.5-5.0); BILIRUBIN,TOTAL 0.8 mg/dL (0.2-2.0); BUN/CREATININE RATIO 3.79; CREATININE SERUM 5.8 mg/dL (0.6-1.4); GLOM FILT RATE Estimated 8.5 mL/min (>60); PROTEIN TOTAL SERUM 4.4 g/dL (6.0-8.3)
[2016-12-27 16:39] LABS: HEPARIN INDUCED PLT AB Negative (Negative); UFH HIGH DOSE 100 0 (()); UFH LOW DOSE 0.1 0 (()); UFH LOW DOSE 0.5 1 (())
[2016-12-28 05:13] LABS: SPE A1GLOB (PNL) 0.3 g/dL (0.2-0.3); SPE A2GLOB (PNL) 0.6 g/dL (0.5-0.9); SPE ALB (PNL) 2.6 g/dL (3.8-4.8); SPE BETA 1 GLOBULIN 0.2 g/dL (0.4-0.6); SPE BETA 2 GLOBULIN 0.2 g/dL (0.2-0.5); SPE GAMMA (PNL) 0.8 g/dL (0.8-1.7); SPETP (PNL) 4.6 g/dL (6.1-8.1)
[2016-12-28 05:45] LABS: HEMATOCRIT 27.8 % (38.0-50.0); HEMOGLOBIN 9.4 gm/dL (13.0-16.0); MEAN CELL VOLUME 99.3 FL (83-96); MEAN CORPUSCULAR HEMOGLOBIN 33.5 PG (28-34); MEAN CORPUSCULAR HGB CONC 33.8 g/dL (30-36); RED BLOOD COUNT 2.8 X10e (3.90-5.60); RED CELL DISTRIBUTION WIDTH 15.5 % (11.0-15.5); WHITE BLOOD COUNT 4.9 X10e3 (4.0-10.5)
[2016-12-28 06:30] LABS: ALBUMIN SERUM 2.4 g/dL (3.5-5.0); BILIRUBIN,TOTAL 0.6 mg/dL (0.2-2.0); BUN/CREATININE RATIO 3.88; CALCIUM SERUM 8.2 mg/dL (8.4-10.2); CREATININE SERUM 3.6 mg/dL (0.6-1.4); POTASSIUM 4.1 mmol/L (3.5-5.1)
[2016-12-29 05:50] LABS: HEMATOCRIT 26.1 % (38.0-50.0); HEMOGLOBIN 8.7 gm/dL (13.0-16.0); MEAN CELL VOLUME 100.6 FL (83-96); MEAN CORPUSCULAR HEMOGLOBIN 33.4 PG (28-34); MEAN CORPUSCULAR HGB CONC 33.2 g/dL (30-36); RED BLOOD COUNT 2.6 X10e (3.90-5.60); RED CELL DISTRIBUTION WIDTH 15.6 % (11.0-15.5); WHITE BLOOD COUNT 4.3 X10e3 (4.0-10.5)
[2016-12-29 06:04] LABS: ALBUMIN SERUM 2.4 g/dL (3.5-5.0); BILIRUBIN,TOTAL 0.5 mg/dL (0.2-2.0); BUN/CREATININE RATIO 4.37; CALCIUM SERUM 8.1 mg/dL (8.4-10.2); CREATININE SERUM 4.8 mg/dL (0.6-1.4); GLOM FILT RATE Estimated 10.6 mL/min (>60); POTASSIUM 4.4 mmol/L (3.5-5.1)
[2016-12-29] MEDS ORDERED: PROTONIX40 M1 PO (19:44)
[2016-12-29] MEDS ORDERED: PRINIVIL5 MG PO (19:45)
== END 2016-12-29 21:59 | disposition home health service (06) | DRG 391 ==
LOC: CED 11:20 → C5C 16:20 → CEDOF 16:20 → CED 16:20 → CEDOF 17:05 → C5C 19:32 → CEDOF 19:32 → C5C 12-29 21:59
PROVIDERS: Emergency Medicine; Internal Medicine; Internal Medicine Gastroenterology; Internal Medicine Hematology; Internal Medicine Hematology & Oncology; Internal Medicine Nephrology
PROC: 0DB78ZX Excision of Stomach, Pylorus, Via Natural or Artificial Opening Endoscopic, Diagnostic (ICD-10-PCS; principal; 2016-12-21 12:15)
PROC: 5A1D60Z (ICD-10-PCS; 2016-12-21 12:15)
PROC: 07DR3ZX Extraction of Iliac Bone Marrow, Percutaneous Approach, Diagnostic (ICD-10-PCS; 2016-12-26)
PROC: B24BZZZ Ultrasonography of Heart with Aorta (ICD-10-PCS; 2016-12-26)
DX: K22.2 Esophageal obstruction (principal); N18.6 End stage renal disease; J90 Pleural effusion, not elsewhere classified; E11.22 Type 2 diabetes mellitus with diabetic chronic kidney disease; I12.0 Hypertensive chronic kidney disease with stage 5 chronic kidney disease or end stage renal disease; R13.10 Dysphagia, unspecified; E44.1 Mild protein-calorie malnutrition; K22.10 Ulcer of esophagus without bleeding; Z99.2 Dependence on renal dialysis; K29.70 Gastritis, unspecified, without bleeding; K29.80 Duodenitis without bleeding; Z68.20 Body mass index [BMI] 20.0-20.9, adult; R53.1 Weakness; D63.1 Anemia in chronic kidney disease; Z79.4 Long term (current) use of insulin; E78.5 Hyperlipidemia, unspecified; R07.9 Chest pain, unspecified; R09.89 Other specified symptoms and signs involving the circulatory and respiratory systems; Z87.891 Personal history of nicotine dependence; Z86.73 Personal history of transient ischemic attack (TIA), and cerebral infarction without residual deficits; Z85.528 Personal history of other malignant neoplasm of kidney; E87.6 Hypokalemia; J40 Bronchitis, not specified as acute or chronic
CPT/HCPCS: 36415; 70450; 71010; 71260; 74177; 76700; 77002; 80048; 80053; 80076; 81003; 82308; 82550; 82607; 82728; 82746; 82947; 83010; 83540; 83550; 83735; 83880; 84165; 84443; 84484; 85025; 85027; 85044; 85610; 85730; 86022; 87077; 88305; 88311; 92526; 92610; 93005; 93306; 96365; 96375; 97110; 97116; 97162; 97166; 97530; 97535; 99285; C9113; G8978-GP; G8979-GP; G8987-GO; G8988-GO; G8996-GN; G8997-GN; G8998-GN; J0456; J0696; J1650; J1815; J2250; J2543; J3010; Q4081; Q9967

== ENCOUNTER 2017-01-16 08:46 | Inpatient (IN) | payer OTHER ==
[~2017-01-16] VITALS: Ht 162.6 cm; Wt 63.5 kg
--- NOTE | ~2017-01-16 | CO ---
Unit #: [id number] #: [id number] Patient: DHEERAJ LAWRENCE [id number] [facility] [address] [facility]. [place], [place] [address] [id number] I MR#: [id number] NAME: DHEERAJ LAWRENCE ROOM: 555 Age: 81 Sex: M Admission Date: 01/16/2017 : 1935 Attending Physician: Elgin Lujan M.D. Primary Care Physician: Dheeraj Mckeon M.D. Consultation Date: 01/16/2017 CONSULTATION REPORT REASON FOR CONSULTATION Renal failure. Thank you very much for asking me to see this patient in consultation. HISTORY OF PRESENT ILLNESS Mr. Dheeraj Lawrence is an 81-year-old male with history of end-stage renal disease, on hemodialysis normally every Monday, , and Monday, who presented to the emergency room earlier today with increasing shortness of breath and was admitted with possible fluid overload versus other. The patient states he did leave the hospital on 12/29/2016 where he was in for several weeks. He found to have esophageal stricture and EF around 40% to 45%. At that time, his weight was challenged and he improved. He presents again now with increasing shortness of breath. Although, he denies any chest pain. He denies any nausea, vomiting, fevers, or chills. No significant cough. No urinary symptoms. He has had some increased swelling. PAST MEDICAL HISTORY History of end-stage renal disease times approximately 2 years, again on dialysis every Monday, , Monday under the care Dr. Daljit Bianchi in our group. History of renal cell CA, status post right nephrectomy in the past. History of hyperlipidemia, history of diabetes mellitus, history of distal esophageal stricture, history of congestive heart failure with EF around 40% to 45%, status post hip replacement, status post left AV fistula, history of TIA. ALLERGIES No known drug allergies. SOCIAL HISTORY Previous smoker, none now. No alcohol. He is retired and . His worked at [employer] up until 2 years ago. MEDICATIONS At home include Zestril 10 mg a day, Lipitor 10 mg a day, Protonix 40 mg b.i.d., vitamin D daily, Lexapro 10 mg a day, insulin, Plavix 75 mg a day, Toprol-XL 50 mg b.i.d. REVIEW OF SYSTEMS As mentioned in HPI, otherwise negative. FAMILY HISTORY Noncontributory. Unit #: [id number] #: [id number] Patient: DHEERAJ LAWRENCE PHYSICAL EXAMINATION GENERAL: He is alert. VITAL SIGNS: Temperature is 97.5, pulse 69 to 98 since he has been here, blood pressure 131 to 197 over 52 to 92. HEENT: He is normocephalic and atraumatic. Pupils are equal, round, and reactive to light. Extraocular muscles are intact. Hearing appears to be normal. Mouth is clear. No erythema. No exudate. NECK: Supple. No JVD. CARDIAC: He appears to have regular rhythm without a rub. No S3 or S4. LUNGS: Have decreased breath sounds at bases. Upper lungs are clear. ABDOMEN: Bowel sounds positive, nontender, soft. No masses felt. No hepato-organomegaly noted. EXTREMITIES: He does have some mild lower extremity swelling. His arm he has a left AV fistula with good thrill. NEUROLOGIC: Appears to be intact with motor and sensory grossly. : Deferred. DIAGNOSTIC STUDIES LABORATORY RESULTS: Shows sodium 136, potassium 3.9, chloride 97, bicarb is 29, BUN of 20, creatinine 4.6, glucose 289. Calcium is 9.1, albumin is 3.4. BNP is greater than 4988. Hemoglobin is 10.6, white count 7000, platelets 419,000. ASSESSMENT AND PLAN 1. End-stage renal disease. The patient is again normal dialysis is Monday, , Monday but increased shortness of breath and probably fluid overload again. We will dialyze him today on a 4 potassium bath, try to remove 3 to 4 L, and again dialyze him again tomorrow to see how he does and we will lower his dry weight if he can tolerate it. Certainly, I assume the patient is not eating much and has continued to lose weight. 2. Anemia. The patient's hemoglobin appears to be stable. We will give EPO with dialysis tomorrow. We will follow trends. 3. History of fluid overload with an ejection fraction earlier this month of 40% to 45%. 4. Diabetes mellitus with increased glucose per primary. Dictated by..Uli Whatley M.D. ELANA/gricelda TD: 01/17/2017 23:50 JOB #: [id number] CONSULTATION REPORT Page 1 of 1 X Avila Whatley MD CONSULTATION REPORT
--- NOTE | ~2017-01-16 | CR72 ---
[facility] A Service of [facility] RADIOLOGY TEXT RESULTS PATIENT: DHEERAJ DEL RIO LOCATION: [facility] 555-01 : 36 UNIT #: [id number] AGE: [address]: Elgin Lujan MD SEX: M ORDER DR: [id number] [facility] [address] [facility]. [place], [place] [address] [id number] I MR#: [id number] Acc #: [id number] NAME: DHEERAJ DEL RIO. : 1935 SEX: M STUDY DATE/TIME: 01/16/2017 9:26 UNIT: [facility] ROOM: [facility] STUDY DESCRIPTION: CR Chest Single View Portable Attending Physician: Elgin Lujan M.D. Ordering Physician: Warren Kang M.D. Primary Care Physician: Dheeraj Mckeon M.D. MEDICAL IMAGING REPORT This report is preliminary unless electronic signature is present EXAM Portable chest. HISTORY 81-year-old male, shortness of air x1 day. COMPARISON 12/20/2016 FINDINGS Portable view of the chest demonstrates low lung volumes. Suspected cardiomegaly, pulmonary vascular congestion and interstitial prominence suggesting underlying CHF with probable bilateral pleural effusions. Bibasilar atelectasis. No invasive tubes or lines identified. This represents a new finding from the 12/20/2016 study. Dictated by... Laxmi Lopez M.D. THIS IS AN ELECTRONICALLY VERIFIED REPORT Laxmi Lopez M.D. at 01/17/2017 10:15 AM JORGE/daljit TD: 01/16/2017 16:10 JOB #: [id number] MEDICAL IMAGING REPORT Page 1 of 1 COPY
--- NOTE | ~2017-01-16 | CR63 ---
[facility] A Service of [facility] & [facility] RADIOLOGY TEXT RESULTS PATIENT: DHEERAJ DEL RIO LOCATION: [facility] 555-01 : 36 UNIT #: [id number] AGE: [address]: Elgin Lujan MD SEX: M ORDER DR: [id number] [facility] [address] [place], [place] [address] [id number] I MR#: [id number] Acc #: [id number] NAME: DHEERAJ DEL RIO : 1935 SEX: M STUDY DATE/TIME: 01/18/2017 13:29 UNIT: [facility] ROOM: [facility] STUDY DESCRIPTION: CR Chest 2 View Attending Physician: Elgin Lujan M.D. Ordering Physician: Elgin Lujan M.D. Primary Care Physician: Dheeraj Mckeon M.D. MEDICAL IMAGING REPORT This report is preliminary unless electronic signature is present EXAM Chest x-ray, 01/18. INDICATIONS Shortness of air and weight loss for 2 days. History of kidney cancer. FINDINGS Two views of the chest compared to 01/16/2017. Lung volumes remain quite low. There are persistent bilateral pleural effusions with bibasilar atelectasis or infiltrate. No pneumothorax is seen. IMPRESSION Low lung volumes with persistent small bilateral pleural effusions and bibasilar consolidations. Dictated by... Dheeraj Rahman Jr., M.D. THIS IS AN ELECTRONICALLY VERIFIED REPORT Dheeraj Rahman Jr., M.D. at 01/19/2017 7:16 AM PRINCE/annie TD: 01/18/2017 17:37 JOB #: [id number] MEDICAL IMAGING REPORT Page 1 of 1 COPY
--- NOTE | ~2017-01-16 | EKG ---
PATIENT: DHEERAJ DEL RIO UNIT #: [id number] Ventricular Rate: 98 BPM Atrial Rate: 98 BPM P-R Interval: 138 ms QRS Duration: 88 ms Q-T Interval: 394 ms QTC Calculation(Bezet): 503 ms P [place]: 28 degrees Calculated R [place]: 19 degrees Calculated T [place]: 149 degrees Diagnosis Line: Sinus rhythm with Premature atrial complexes Diagnosis Line: Nonspecific T wave abnormality Diagnosis Line: Abnormal ECG Diagnosis Line: When compared with ECG of 26-DEC-2016 05:59, Diagnosis Line: Premature atrial complexes are now Present Diagnosis Line: Confirmed by ALICE LEI MD ([id number]) on Diagnosis Line: 01/16/2017 12:33:17 PM INTERPRETING MD: QUIQUE LAWRENCE
--- NOTE | ~2017-01-16 | XA203 ---
[facility] A Service of [facility] RADIOLOGY TEXT RESULTS PATIENT: LUCIUS DEL RIO LOCATION: [facility] 555-01 : 36 UNIT #: [id number] AGE: [address]: Elgin Lujan MD SEX: M ORDER DR: [id number] [place] [id number] [facility]. [place], [place] [address] [id number] MR#: [id number] Acc #: [id number] NAME: LUCIUS DEL RIO : 1935 SEX: M STUDY DATE/TIME: 01/20/2017 13:30 UNIT: [facility] ROOM: [facility] STUDY DESCRIPTION: XA Thoracentesis Attending Physician: Elgin Lujan M.D. Ordering Physician: Elgin Lujan M.D. Primary Care Physician: Lucius Mckeon M.D. MEDICAL IMAGING REPORT This report is preliminary unless electronic signature is present EXAM Ultrasound-guided right thoracentesis. INDICATIONS Right pleural effusion. The risks, benefits, and alternatives of the procedure were discussed with the patient and informed consent was obtained. In the procedure room, a time out was performed confirming correct patient and procedure. All elements of maximum sterile-barrier technique utilized according to guidelines appropriate for the procedure. TECHNIQUE FINDINGS Ultrasound of the posterior hemithorax was performed. The overlying skin was prepped and draped in usual sterile fashion. 1% lidocaine utilized to anesthetize the skin and underlying subcutaneous tissues. Next under ultrasound guidance, a 5-Persian Yueh catheter inserted into the pleural space on the right and 1300 mL of fluid was removed. The needle was removed and a sterile dressing was applied. No immediate complications. IMPRESSION Technically successful ultrasound-guided right thoracentesis. Sample was sent to the lab. Dictated by... Caesar Lopez M.D. THIS IS AN ELECTRONICALLY VERIFIED REPORT Caesar Lopez M.D. at 01/23/2017 12:15 PM ARS/pcl TD: 01/20/2017 22:29 [facility] A Service of [facility] RADIOLOGY TEXT RESULTS PATIENT: LUCIUS DEL RIO LOCATION: [facility] 555-01 : 36 UNIT #: [id number] AGE: [address]: Elgin Lujan MD SEX: M ORDER DR: JOB #: [id number] MEDICAL IMAGING REPORT Page 1 of 1 COPY
--- NOTE | ~2017-01-16 | CR71 ---
[facility] A Service of [facility] RADIOLOGY TEXT RESULTS PATIENT: DHEERAJ DEL RIO LOCATION: [facility] 555-01 : 36 UNIT #: [id number] AGE: [address]: Elgin Lujan MD SEX: M ORDER DR: [id number] [facility] [address] [place], [place] [address] [id number] I MR#: [id number] #: [id number] NAME: DHEERAJ DEL RIO : 1935 SEX: M STUDY DATE/TIME: 01/20/2017 13:47 UNIT: [facility] ROOM: [facility] STUDY DESCRIPTION: CR Chest Single View Attending Physician: Elgin Lujan M.D. Referring Physician: Sinan Garcia M.D. Ordering Physician: Sinan Garcia M.D. Primary Care Physician: Dheeraj Mckeon M.D. MEDICAL IMAGING REPORT This report is preliminary unless electronic signature is present EXAM Portable chest radiograph. INDICATIONS Evaluate for pneumothorax following thoracentesis. FINDINGS Comparison made to a prior exam from January 18, 2017. Since prior examination, patient has undergone right-sided thoracentesis. No pneumothorax is identified. There is probably trace right pleural effusion, moderate left pleural effusion is also noted. There is some bibasilar atelectasis, left greater than right. Dictated by... Shirlene Beckwith M.D. THIS IS AN ELECTRONICALLY VERIFIED REPORT Shirlene Beckwith M.D. at 01/21/2017 2:09 PM AFF/jmanuel TD: 01/20/2017 18:13 JOB #: [id number] MEDICAL IMAGING REPORT Page 1 of 1 COPY
--- NOTE | ~2017-01-16 | DS ---
Unit #: [id number] #: [id number] Patient: DHEERAJ DEL RIO [id number] [address] [address] [id number] MR#: [id number] NAME: DHEERAJ DEL RIO. ROOM: 555 Age: 81 Sex: M Admission Date: 01/16/2017 : 1935 Discharge Date: 01/22/2017 Attending Physician: Elgin Lujan M.D. Primary Care Physician: Dheeraj Mckeon M.D. DISCHARGE SUMMARY PRINCIPAL DISCHARGE DIAGNOSES 1. Hypoxic respiratory failure. 2. Bilateral pleural effusions. 3. Status post right thoracentesis. 4. Left ventricular dysfunction with an ejection fraction of 40% to 45%. 5. End-stage renal disease on hemodialysis. 6. Hypertension. 7. Insomnia. 8. Type 2 diabetes mellitus. 9. Gastroesophageal reflux disease with distal esophageal stricture. 10. Anemia. 11. Hyperlipidemia. 12. History of right renal cell cancer, status post partial right nephrectomy. 13. Left arm arteriovenous shunt. 14. History of transient ischemic attack. 15. History of left hip hemiarthroplasty. PROCEDURES 1. Right side thoracentesis on January 20, 2017. 2. Hemodialysis on January 16, 2017, January 17, 2017, January 19, 2017, and January 21, 2017. NURSE MIDWIFE Dr. Fili Whatley. REASON FOR HOSPITALIZATION The patient is an 81-year-old white male with end-stage renal disease on hemodialysis, hypertension, type 2 diabetes mellitus, hyperlipidemia, partial right nephrectomy for renal cell CA, left ventricular dysfunction with an EF of 40% to 45%, recently found to have thrombocytopenia with large workup which eventually essentially resolved on its own. During that admission, had an EGD and was found to have some distal esophageal stricturing. In any case, the patient arrived in the emergency room with three days of PND, orthopnea, increased shortness of air even at rest, bilateral lower extremity edema. Found to have pulmonary edema with bilateral pleural effusions and hypoxic respiratory failure in the emergency room. Patient was afebrile. Blood pressure was elevated at 182/81. CBC was normal except for a hemoglobin of 10.6. Coags were normal. Cardiac enzymes normal. Random blood sugar 289. Creatinine 4.6, GFR 11. BNP was greater than 4988. Chest x-ray: Low lung volumes, cardiomegaly, pulmonary edema, small bilateral pleural effusions which were new versus old x-ray. EKG showed a sinus rhythm with PACs and a nonspecific T abnormality. Unit #: [id number] #: [id number] Patient: [facility] The patient was admitted. He underwent hemodialysis on the day of admission and then back to his Monday, Monday, schedule. Adjustments were made in his antihypertensives to lower his blood pressure. His insulin was adjusted as well for hyperglycemia. He had an overnight pulmonary oximetry with an O2 saturation down to 81%. He still had shortness of air even with his oxygen on. Because of this he underwent right thoracentesis on January 20, which he tolerated well with marked improvements in his symptoms. He had dialysis on the . Currently, he has been off his oxygen for 24 hours without any shortness of air. His room air O2 saturation at rest was 100% and with ambulating was 96%. He is being discharged home. [facility] is to follow for home health, PT, and OT. He will continue his hemodialysis on Monday, , and Monday. He needs to have an office visit with Dr. Mckeon in about one week with a repeat chest x-ray. He may need to have a left thoracentesis if his symptoms persist but obviously we are hoping with hemodialysis they can lower his dry weight and prevent this from happening. He is on a healthy heart constant carb diet. DISCHARGE MEDICATIONS He is a given a prescription for trazodone 50 mg nightly for insomnia, hydralazine 25 mg b.i.d., lisinopril 30 mg daily. His other meds will be the same except his insulin has been increased from 20 units of Lantus nightly to 30. His other current meds: 1. Lexapro 10 mg daily. 2. Pravachol 40 mg daily. 3. Megace suspension 200 mg daily. 4. Metoprolol succinate 50 mg p.o. b.i.d. 5. Colace 200 mg nightly. 6. Humalog sliding scale a.c. and at bedtime. 7. Multivitamins daily. 8. Plavix 75 mg daily. 9. Protonix 40 mg b.i.d. 10. Vitamin D3 at 1000 units daily. Dictated by... Yeni Yi/veena TD: 01/23/2017 10:32 JOB #: [id number] Unit #: [id number] #: [id number] Patient: DHEERAJ DEL RIO DISCHARGE SUMMARY Page 1 of 1 X Elgin Lujan MD X DISCHARGE SUMMARY
--- NOTE | ~2017-01-16 | HP ---
Unit #: [id number] #: [id number] Patient: DHEERAJ DEL RIO [id number] [address] [place], [place] [address] [id number] I MR#: [id number] NAME: DHEERAJ DEL RIO. ROOM: 555 Age: 81 Sex: M Admission Date: 01/16/2017 : 1935 Attending Physician: Elgin Lujan M.D. Primary Care Physician: Dheeraj Mckeon M.D. 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 Workup ensued. It was essentially negative. He had an EGD that showed some distal esophageal stricturing. He had some EKG changes and was seen by cardiology. Underwent hemodialysis while here, was eventually stabilized and discharged on the of last month. He has done well since then until about three days ago when he began having lower extremity edema, PND, orthopnea, increased shortness of air even at rest. Arrived in the emergency room, found to have pulmonary edema and is admitted for emergent hemodialysis and further evaluation. ALLERGIES Patient has no known drug allergies. MEDICATIONS His medications prior to admission: 1. Megace 20 mg/mL 5 mL daily. 2. Humalog sliding scale. 3. Lantus SoloStar 20 units subcutaneous nightly. 4. Pravachol 40 mg daily. 5. Plavix 75 mg daily. 6. Lexapro 10 mg daily. 7. Vitamin D3 at 1000 units daily. 8. Multivitamins daily. 9. Colace 200 mg daily at bedtime. 10. Metoprolol succinate 50 mg b.i.d. 11. Protonix 40 mg b.i.d. 12. Prinivil 5 mg daily. PAST MEDICAL HISTORY 1. End-stage renal disease on hemodialysis. 2. Partial right nephrectomy for renal cell CA. 3. Type 2 diabetes mellitus. 4. Hypertension. 5. Hyperlipidemia. 6. TIA. 7. Left ventricular dysfunction. PAST SURGICAL HISTORY 1. Partial right nephrectomy. Unit #: [id number] #: [id number] Patient: DHEEARJ DEL RIO 2. Left arm AV shunt. 3. Left hip (1) arthroplasty. SOCIAL HISTORY , nonsmoker, nondrinker, retired. No street drug use. FAMILY HISTORY Noncontributory. PHYSICAL EXAMINATION GENERAL: He is awake, alert, oriented x3 in no acute distress with O2 on. is at the bedside. Currently undergoing hemodialysis. VITAL SIGNS: Afebrile, temperature 97.5, pulse 88, respirations 16, room air O2 saturation 92%, blood pressure originally 182/81, now 144/61. HEENT: Otherwise unremarkable except for aging changes, temporal wasting. Nasal cannula in place. NECK: Supple without JVD, bruits, adenopathy, or thyromegaly. CHEST: Clear to auscultation. HEART: Regular rate and rhythm without any murmurs, rubs, or gallops. ABDOMEN: Soft, nondistended, nontender with positive bowel sounds. No hepatosplenomegaly. EXTREMITIES: Showed no clubbing, cyanosis, and 1+ pitting edema of the bilateral lower extremities. GENITOURINARY: Deferred. RECTAL: Deferred. NEUROLOGIC: Grossly intact. DIAGNOSTIC STUDIES LABORATORY: CBC normal except for a hemoglobin of 10.6. PT and PTT within normal limits. Cardiac enzymes normal. CMP normal except for random blood sugar of 289, creatinine 4.6, GFR 11.2, alkaline phosphatase 122, and albumin 3.4. BNP is greater than 4988. IMAGING: Chest x-ray, portable: Low lung volumes, cardiomegaly, pulmonary edema, small bilateral pleural effusions which is new versus his old chest x-ray. CARDIOVASCULAR: EKG: Sinus rhythm, PACs, nonspecific T abnormality. IMPRESSION 1. Pulmonary edema. 2. End-stage renal disease on hemodialysis. 3. Left ventricular dysfunction with an ejection fraction of 40% to 45%. 4. Hypertension. 5. Type 2 diabetes mellitus. 6. Hyperlipidemia. 7. History of right renal cell cancer, status post partial right nephrectomy. 8. Anemia. 9. History of thrombocytopenia, now resolved. 10. Anorexia. 11. Distal esophageal stricture. 12. Left arm arteriovenous shunt. 13. Status post left hip hemiarthroplasty. 14. History of transient ischemic attack. PLAN 1. Hemodialysis today. Unit #: [id number] #: [id number] Patient: DHEERAJ DEL RIO 2. Hemodialysis tomorrow. 3. Consult nephrology. 4. Control his blood pressure a little bit better. Obviously, his dry weight needs to be lower. 5. Resume home meds. 6. Lovenox for deep venous thrombosis prophylaxis. 7. Accu-Cheks a.c. and at bedtime (2) sliding scale insulin. 8. Further evaluation pending results above. Dictated by Yeni Yi/veena TD: 01/16/2017 17:15 JOB #: [id number] HISTORY AND PHYSICAL Page 1 of 1 X Elgin Lujan MD HISTORY AND PHYSICAL
[~2017-01-16 08:46] MED LIST changes: +ESCITALOPRAM OX10 MG PO; +HUMALOG100 UNIT/1; +LANTUS SOL100 UNIT/1 SUBQ; +METOPROLOL SUCC25 MG PO; +MULTIVITAMINS1 EAC4 PO; +NIACIN PO; +PATIENT'S PHARMACY; +PRAVACHOL PO; +PRINIVIL5 MG PO; +PROTONIX40 M1 PO; +STOOL SOFTENER100 M1 PO; +VITAMIN D31000 UNI2 PO
[2017-01-16 09:32] LABS: BASOPHIL% 0.7 % (0-2.5); EOSINOPHIL# 0.1 X10e3 (0-0.7); HEMATOCRIT 31.8 % (38.0-50.0); HEMOGLOBIN 10.6 gm/dL (13.0-16.0); LYMPHOCYTE# 0.8 X10e3 (1.0-3.5); LYMPHOCYTE% 11.8 % (17.0-45.0); MEAN CELL VOLUME 99.3 FL (83-96); MEAN CORPUSCULAR HEMOGLOBIN 33.2 PG (28-34); MEAN CORPUSCULAR HGB CONC 33.4 g/dL (30-36); MEAN PLATELET VOLUME 6.9 FL (6.5-11.5); MONOCYTE# 0.7 X10e3 (0-1.0); MONOCYTE% 10.3 % (3.0-12.0); NEUTROPHIL# 5.3 X10e3 (1.5-7.1); NEUTROPHIL% 76.2 % (40-75); PLATELET COUNT 419 X10e3 (140-420); RED CELL DISTRIBUTION WIDTH 17.1 % (11.0-15.5)
[2017-01-16 09:36] LABS: DIFF IND NO
[2017-01-16 09:46] LABS: INR 1.1; PARTIAL THROMBOPLASTIN TIME 25.3 SECONDS (23.5-31.3); PROTHROMBIN TIME (PATIENT) 11.6 SECONDS (10.0-11.7)
[2017-01-16 09:57] LABS: ALBUMIN SERUM 3.4 g/dL (3.5-5.0); BILIRUBIN, DIRECT 0.2 mg/dL (0.0-0.2); BILIRUBIN,INDIRECT 0.6 mg/dL (0.0-0.9); BILIRUBIN,TOTAL 0.8 mg/dL (0.2-2.0); BUN/CREATININE RATIO 4.34; CALCIUM SERUM 9.1 mg/dL (8.4-10.2); CREATININE SERUM 4.6 mg/dL (0.6-1.4); GLOM FILT RATE Estimated 11.2 mL/min (>60); POTASSIUM 3.9 mmol/L (3.5-5.1); PROTEIN TOTAL SERUM 6.8 g/dL (6.0-8.3)
[2017-01-16 11:01] LABS: POC - CKMB <1.0 ng/mL (0.0-7.9); POC - TROPONIN <0.05 ng/mL (<=0.05)
[2017-01-16 11:12] LABS: POC - CKMB 1.6 ng/mL (0.0-7.9); POC - TROPONIN <0.05 ng/mL (<=0.05)
[2017-01-16] MEDS ORDERED: MEGACE PO (16:06)
[2017-01-16] MEDS ORDERED: MEGACE ORA40 MG/ML S PO (17:46)
[2017-01-17 05:27] LABS: HEMOGLOBIN 9.7 gm/dL (13.0-16.0); MEAN CELL VOLUME 100.8 FL (83-96); MEAN CORPUSCULAR HEMOGLOBIN 33.7 PG (28-34); MEAN CORPUSCULAR HGB CONC 33.4 g/dL (30-36); MEAN PLATELET VOLUME 7.8 FL (6.5-11.5); RED BLOOD COUNT 2.87 X10e (3.90-5.60); WHITE BLOOD COUNT 5.9 X10e3 (4.0-10.5)
[2017-01-17 06:15] LABS: BUN/CREATININE RATIO 3.87; CALCIUM SERUM 8.4 mg/dL (8.4-10.2); CREATININE SERUM 3.1 mg/dL (0.6-1.4); PHOSPHOROUS 1.6 mg/dL (2.5-4.6); POTASSIUM 4.6 mmol/L (3.5-5.1)
[2017-01-18 06:34] LABS: HEMATOCRIT 27.2 % (38.0-50.0); MEAN CELL VOLUME 101.2 FL (83-96); MEAN CORPUSCULAR HEMOGLOBIN 33.6 PG (28-34); MEAN CORPUSCULAR HGB CONC 33.2 g/dL (30-36); MEAN PLATELET VOLUME 7.6 FL (6.5-11.5); RED BLOOD COUNT 2.69 X10e (3.90-5.60); RED CELL DISTRIBUTION WIDTH 18.6 % (11.0-15.5); WHITE BLOOD COUNT 4.8 X10e3 (4.0-10.5)
[2017-01-18 07:24] LABS: BUN/CREATININE RATIO 4.84; CREATININE SERUM 3.3 mg/dL (0.6-1.4); GLOM FILT RATE Estimated 16.7 mL/min (>60); POTASSIUM 4.3 mmol/L (3.5-5.1)
[2017-01-18 08:24] LABS: BUN/CREATININE RATIO 5.31; CALCIUM SERUM 8.1 mg/dL (8.4-10.2); CREATININE SERUM 3.2 mg/dL (0.6-1.4); GLOM FILT RATE Estimated 17.3 mL/min (>60); POTASSIUM 4.5 mmol/L (3.5-5.1)
[2017-01-18 09:45] LABS: URINE APPEARANCE CLEAR; URINE BILIRUBIN NEG (NEG); URINE BLOOD NEG (NEG); URINE COLOR DK YELLOW; URINE GLUCOSE 500 MG/DL (NEG); URINE KETONE TRACE (NEG); URINE LEUKOCYTE ESTERASE NEG (NEG); URINE NITRATE NEG (NEG); URINE PROTEIN 3+ (NEG); URINE SPECIFIC GRAVITY 1.027 (1.003-1.035)
[2017-01-18 09:47] LABS: URBCS1 AUWI 0-2 /[HPF] (0-2); URINE BACTERIA AUWI NEG (NEGATIVE); URINE SQUAMOUS EPITHELIAL CELL OCC /[HPF]
[2017-01-19 05:26] LABS: HEMATOCRIT 28.1 % (38.0-50.0); HEMOGLOBIN 9.3 gm/dL (13.0-16.0); MEAN CELL VOLUME 101.2 FL (83-96); MEAN CORPUSCULAR HEMOGLOBIN 33.7 PG (28-34); MEAN CORPUSCULAR HGB CONC 33.2 g/dL (30-36); RED BLOOD COUNT 2.78 X10e (3.90-5.60); RED CELL DISTRIBUTION WIDTH 19.1 % (11.0-15.5)
[2017-01-19 06:05] LABS: WHITE BLOOD COUNT 7.6 X10e3 (4.0-10.5)
[2017-01-19 06:22] LABS: BUN/CREATININE RATIO 6.08; CALCIUM SERUM 8.6 mg/dL (8.4-10.2); CREATININE SERUM 4.6 mg/dL (0.6-1.4); GLOM FILT RATE Estimated 11.2 mL/min (>60); PHOSPHOROUS 3.1 mg/dL (2.5-4.6)
[2017-01-20 08:56] LABS: PARTIAL THROMBOPLASTIN TIME 25.2 SECONDS (23.5-31.3); PROTHROMBIN TIME (PATIENT) 11.2 SECONDS (10.0-11.7)
[2017-01-21 05:14] LABS: HEMATOCRIT 29.1 % (38.0-50.0); HEMOGLOBIN 9.6 gm/dL (13.0-16.0); MEAN CELL VOLUME 103.1 FL (83-96); MEAN PLATELET VOLUME 8.1 FL (6.5-11.5); RED BLOOD COUNT 2.82 X10e (3.90-5.60); RED CELL DISTRIBUTION WIDTH 20.5 % (11.0-15.5); WHITE BLOOD COUNT 7.1 X10e3 (4.0-10.5)
[2017-01-21 06:52] LABS: BUN/CREATININE RATIO 8.2; CALCIUM SERUM 8.5 mg/dL (8.4-10.2); GLOM FILT RATE Estimated 10.1 mL/min (>60); POTASSIUM 4.8 mmol/L (3.5-5.1)
[2017-01-22] MEDS ORDERED: DESYREL50 MG PO (10:12)
[2017-01-22] MEDS ORDERED: HYDRALAZINE HCL25 MG PO (10:12)
[2017-01-22] MEDS ORDERED: LISINOPRIL30 MG PO (10:13)
== END 2017-01-22 13:37 | disposition home or self-care (01) | DRG 291 ==
LOC: CED 08:46 → CEDOF 11:35 → C5B 11:35 → CED 12:01 → CEDOF 12:01 → C5B 14:46
PROVIDERS: Emergency Medicine; Internal Medicine; Internal Medicine Nephrology
PROC: 5A1D60Z (ICD-10-PCS; 2017-01-16)
PROC: 0W993ZZ Drainage of Right Pleural Cavity, Percutaneous Approach (ICD-10-PCS; principal; 2017-01-20)
DX: I13.2 Hypertensive heart and chronic kidney disease with heart failure and with stage 5 chronic kidney disease, or end stage renal disease (principal); N18.6 End stage renal disease; J96.91 Respiratory failure, unspecified with hypoxia; J81.1 Chronic pulmonary edema; J91.8 Pleural effusion in other conditions classified elsewhere; E11.22 Type 2 diabetes mellitus with diabetic chronic kidney disease; E11.65 Type 2 diabetes mellitus with hyperglycemia; Z99.2 Dependence on renal dialysis; Z87.891 Personal history of nicotine dependence; Z79.4 Long term (current) use of insulin; I50.9 Heart failure, unspecified; G47.00 Insomnia, unspecified; K21.9 Gastro-esophageal reflux disease without esophagitis; K22.2 Esophageal obstruction; D64.9 Anemia, unspecified; E78.5 Hyperlipidemia, unspecified; R63.0 Anorexia; Z68.24 Body mass index [BMI] 24.0-24.9, adult; Z86.73 Personal history of transient ischemic attack (TIA), and cerebral infarction without residual deficits; Z85.528 Personal history of other malignant neoplasm of kidney; Z96.642 Presence of left artificial hip joint
CPT/HCPCS: 36415; 71010; 71020; 80048; 80076; 81003; 82553; 82947; 83880; 84100; 84484; 85025; 85027; 85610; 85730; 93005; 94760; 97162; 97165; 99285; G8978-GP; G8979-GP; G8980-GP; G8987-GO; G8988-GO; G8989-GO; J1650; J1815; Q4081

== ENCOUNTER → 2017-01-25 | Outpatient (CLI) | payer OTHER ==
[~2017-01-25] MED LIST changes: +DESYREL50 MG PO; +LISINOPRIL30 MG PO; +MEGACE ORA40 MG/ML S PO; +MEGACE PO
--- NOTE | ~2017-01-25 | CR63 ---
[facility] A Service of [facility] RADIOLOGY TEXT RESULTS PATIENT: LUCIUS DEL RIO LOCATION: [facility] : 36 UNIT #: [id number] AGE: [address]: Lucius Mckeon MD SEX: M ORDER DR: [id number] [facility] [address] [place], [place] [address] [id number] MR#: [id number] Acc #: [id number] NAME: LUCIUS DEL RIO : 1935 SEX: M STUDY DATE/TIME: 01/25/2017 15:14 UNIT: [facility] ROOM: STUDY DESCRIPTION: CR Chest 2 View Attending Physician: Lucius Mckeon M.D. Referring Physician: Lucius Mckeon M.D. Ordering Physician: Lucius Mckeon M.D. Primary Care Physician: Lucius Mckeon M.D. MEDICAL IMAGING REPORT This report is preliminary unless electronic signature is present EXAM Chest x-ray, 01/25 INDICATIONS Follow up pleural effusion. Shortness of air for 1 week. FINDINGS Two views of the chest are compared with 01/20/2017. Small left effusion is stable. There is increased size of a small right effusion. There is atelectasis or infiltrate in the bases. No pneumothorax. IMPRESSION Stable left effusion with left basilar consolidation. Increased right pleural effusion with increasing right basilar consolidation. No pneumothorax. Dictated by... Lucius Rahman Jr., M.D. THIS IS AN ELECTRONICALLY VERIFIED REPORT Lucius Rahman Jr., M.D. at 01/27/2017 2:28 PM PRINCE/ranjit TD: 01/26/2017 04:03 JOB #: [id number] MEDICAL IMAGING REPORT Page 1 of 1 COPY
== END | disposition home or self-care (01) ==
LOC: CRAD 14:44
DX: J90 Pleural effusion, not elsewhere classified (principal); J18.1 Lobar pneumonia, unspecified organism
CPT/HCPCS: 71020